=== PATIENT | female | born 1965 | race African-American/Black ===

== ENCOUNTER 2017-01-02 17:35 | Emergency (ER) | payer OTHER ==
[2017-01-02 18:11] VITALS: BP 136/89; PULSE 90; TEMP 98.4; BMI 28.7
--- NOTE | 2017-01-02 18:31 | PDOC ---
History of Present Illness - General Chief Complaint: Constipation Stated Complaint: CONSTIPATION Time Seen by Provider: 01/02/17 18:30 History Source: Patient Exam Limitations: No Limitations - History of Present Illness Initial Comments: 01/02/17 19:49 My chief complaint: No bowel movement for 5 days History of present illness: Patient is a 51-year-old female with a history of anemia here today complaining of having no bowel movement 5 days. Patient denies any nausea, vomiting or any abdominal pain or cramping. Patient reports that she took magnesium citrate yesterday without any results and also states took stool softener. Patient reports that she does not drink a lot of liquids normally. Patient denies having a history of having constipation. Patient denies being on any medication or any pain narcotics at this time. Timing/Duration: other (5 days no BM ) Severity: mild Associated Symptoms: reports: other (no BM for 5 days ) Past History - Past Medical History Allergies/Adverse Reactions: Allergies Allergy/AdvReac Type Severity Reaction Status Date / Time No Known Drug Allergies Allergy Verified 01/02/17 18:08 Home Medications: Ambulatory Orders Docusate Sodium [Colace -] 200 mg PO HS #30 capsule 01/02/17 Glycerin Suppository Adult - 1 each RC DAILY #15 supp.rect MDD 1 01/02/17 Polyethylene Glycol 3350 [Miralax (For Bowel Prep) -] 17 gm PO DAILY #1 bottle MDD 1 01/02/17 Anemia: Yes Asthma: No Cancer: No Cardiac Disorders: No CVA: No COPD: No CHF: No Dementia: No Diabetes: No GI Disorders: No Disorders: No HTN: No Hypercholesterolemia: No Liver Disease: No Seizures: No Thyroid Disease: No - Surgical History Abdominal Surgery: No Appendectomy: No Cardiac Surgery: No Cholecystectomy: No Lung Surgery: No Neurologic Surgery: No Orthopedic Surgery: No - Reproductive History Cervical CA: No Dysfunctional Uterine Bleeding: No Ectopic : No Endometrial CA: No Polycystic Ovaries: No Therapeutic (s) & number: No Tubal Ligation: No - Immunization History Immunization Up to Date: Yes - Psycho/Social/Smoking Cessation Hx Anxiety: No Suicidal Ideation: No Smoking History: Never smoked Have you smoked in the past 12 months: No Number of Cigarettes Smoked Daily: 0 Cigars Per Day: 0 Hx Alcohol Use: No Drug/Substance Use Hx: No Substance Use Type: None Hx Substance Use Treatment: No Review of Systems - Review of Systems Able to Perform ROS?: Yes Constitutional: No: Symptoms Reported HEENTM: No: Symptoms Reported Respiratory: No: Symptoms reported Cardiac (ROS): No: Symptoms Reported ABD/GI: Yes: Constipated (for 5 days no BM), Other (no BM for 5 days ). No: Diarrhea, Difficulty Swallowing, Nausea, Poor Appetite, Poor Fluid Intake, Rectal Bleeding, Vomiting, Indigestion, Abdominal cramping : No: Symptoms Reported Musculoskeletal: No: Symptoms Reported Integumentary: No: Symptoms Reported Neurological: No: Symptoms reported *Physical Exam - Vital Signs Last Vital Signs Temp Pulse Resp BP Pulse Ox 98.4 F 90 19 136/89 100 01/02/17 18:08 01/02/17 18:08 01/02/17 18:08 01/02/17 18:08 01/02/17 18:08 - Physical Exam General Appearance: Yes: Appropriately Dressed Respiratory/Chest: positive: Lungs Clear, Normal Breath Sounds. negative: Chest Tender, Respiratory Distress Cardiovascular: positive: Regular Rhythm, Regular Rate, S1, S2 Gastrointestinal/Abdominal: positive: Normal Bowel Sounds, Soft. negative: Tender, Organomegaly, Distended, Guarding, Rebound, Tenderness, Hepatomegaly, Spleenomegaly Rectal Exam: positive: normal rectal tone, other ( fecal firm matter felt in upper rectal vault). negative: hemorrhoids Integumentary: positive: Normal Color Neurologic: positive: Alert, Normal Response, Responsive Medical Decision Making - Medical Decision Making 01/02/17 19:50 Patient is a 51-year-old female with a history of anemia here today complaining of having no bowel movement 5 days. Patient denies any nausea, vomiting or any abdominal pain or cramping. Patient reports that she took magnesium citrate yesterday without any results and also states took stool softener. Patient reports that she does not drink a lot of liquids normally. Patient denies having a history of having constipation. Patient denies being on any medication or any pain narcotics at this time. Constipation PLAN: fleet enema miralax 17 gm in 8 oz of water daily Informed that she must increase her liquid intake to 8 glasses of water a day Patient must eat fruits and vegetables 8-10 servings a day Glycerin suppository adult insert into rectum every third day if no bowel movement Colace 200 mg daily had large bowel movement with formed brown stool feels better will sent home patient instructed that she could use a glycerin suppository tonight if she still feels an urge to Follow-up with PCP in a few days 01/02/17 20:00 01/02/17 20:14 01/03/17 11:54 01/03/17 11:55 *DC/Admit/Observation/Transfer Diagnosis at time of Disposition: Constipation Qualifiers: Constipation type: unspecified constipation type Qualified Code(s): K59.00 - Constipation, unspecified - Discharge Dispostion Disposition: HOME Condition at time of disposition: Stable - Prescriptions Prescriptions: Docusate Sodium [Colace -] 200 mg PO HS #30 capsule Glycerin Suppository Adult - 1 each RC DAILY #15 supp.rect MDD 1 Polyethylene Glycol 3350 [Miralax (For Bowel Prep) -] 17 gm PO DAILY #1 bottle MDD 1 - Referrals Referrals: Meena Olivera NP [Primary Care Provider] - - Patient Instructions Additional Instructions: You must increase your fluids daily drink at least 8 glasses of 8 ounces of water daily You must eat fresh fruits and vegetables daily up to 8 servings day Follow-up with your primary care provider within the next few days Return to emergency room if any abdominal pain or worsening symptoms or new symptoms develop Patient voiced understanding of discharge instructions and all questions were answered
[2017-01-02] MEDS ORDERED: SODIUM PHOSPHATE/NA BIPHOS 133 ML ENEMA PR ONE (19:49)
== END 2017-01-02 20:17 | disposition home or self-care (01) ==
LOC: JERFT 17:35
DX: K59.00 Constipation, unspecified (principal)
CPT/HCPCS: 99281-25

== ENCOUNTER 2017-01-06 17:53 | Emergency (ER) | payer OTHER ==
--- NOTE | 2017-01-06 18:05 | PDOC ---
Rapid Medical Evaluation Time Seen by Provider: 01/06/17 18:01 Medical Evaluation: Allergies Allergy/AdvReac Type Severity Reaction Status Date / Time No Known Drug Allergies Allergy Verified 01/02/17 18:08
[2017-01-06 18:15] VITALS: BP 115/88; PULSE 82; TEMP 98.1; BMI 28.0
[2017-01-06] MEDS ORDERED: LACTULOSE 20 GM/30 ML UDC (FOR ORAL USE ONLY) PO ONE (18:35)
[2017-01-06] MEDS ORDERED: LACTULOSE 20 GM/30 ML UDC (FOR ORAL USE ONLY) ONE (18:41)
--- NOTE | 2017-01-06 18:48 | PDOC ---
History of Present Illness - General Chief Complaint: Pain Stated Complaint: CONSTIPATED/ABD PAIN Time Seen by Provider: 01/06/17 18:01 History Source: Patient Exam Limitations: No Limitations - History of Present Illness Initial Comments: 01/06/17 21:53 Complaint: Constipation Patient is a 51 yo female who was seen here several days ago for constipation, done an enema and drank mag citrate prior to coming to the ER last time and was sent home and has been taking MiraLAX. Patient came back tonight because she still has an had a bowel movement. No abdominal pain although she feels pressure in her rectum when she has to go.. GENERAL/CONSTITUTIONAL: No fever, weakness. dizziness HEAD, EYES, EARS, NOSE AND THROAT: No change in vision. No ear pain or discharge. No sore throat. CARDIOVASCULAR: No chest pain RESPIRATORY: No shortness of breath or cough GASTROINTESTINAL: No pain, nausea, vomiting, diarrhea +constipation GENITOURINARY: No dysuria MUSCULOSKELETAL: No neck or back pain SKIN: No rash NEUROLOGIC: No headache, vertigo, loss of consciousness, or loss of sensation. GENERAL: The patient is awake, alert, and fully oriented, in no acute distress. HEAD: Normal with no signs of trauma. EYES: Pupils equal, round and reactive to light, sclera anicteric, conjunctiva clear. ENT: pharynx: no erythema, no exudate, uvula midline NECK: supple CHEST: clear, nontender, rr ABD: soft, nontender Rectal: No stool, no impaction EXTREMITIES: Normal range of motion, no edema. NEUROLOGICAL: Normal speech, normal gait. SKIN: Warm, Dry 01/06/17 22:03 Past History - Past Medical History Allergies/Adverse Reactions: Allergies Allergy/AdvReac Type Severity Reaction Status Date / Time No Known Drug Allergies Allergy Verified 01/06/17 18:14 Home Medications: Ambulatory Orders NK [No Known Home Medication] 01/06/17 Anemia: Yes Asthma: No Cancer: No Cardiac Disorders: No CVA: No COPD: No CHF: No Dementia: No Diabetes: No GI Disorders: No Disorders: No HTN: No Hypercholesterolemia: No Liver Disease: No Seizures: No Thyroid Disease: No - Surgical History Abdominal Surgery: No Appendectomy: No Cardiac Surgery: No Cholecystectomy: No Lung Surgery: No Neurologic Surgery: No Orthopedic Surgery: No - Reproductive History Cervical CA: No Dysfunctional Uterine Bleeding: No Ectopic : No Endometrial CA: No Polycystic Ovaries: No Therapeutic (s) & number: No Tubal Ligation: No - Immunization History Immunization Up to Date: Yes - Psycho/Social/Smoking Cessation Hx Anxiety: No Suicidal Ideation: No Smoking History: Never smoked Have you smoked in the past 12 months: No Number of Cigarettes Smoked Daily: 0 Cigars Per Day: 0 Information on smoking cessation initiated: No Hx Alcohol Use: No Drug/Substance Use Hx: No Substance Use Type: None Hx Substance Use Treatment: No *Physical Exam - Vital Signs Last Vital Signs Temp Pulse Resp BP Pulse Ox 98.1 F 82 18 115/88 100 01/06/17 18:11 01/06/17 18:11 01/06/17 18:11 01/06/17 18:11 01/06/17 18:11 ED Treatment Course - Medications Given in the ED: ED Medications Discontinued Medications Generic Name Dose Route Start Last Admin Trade Name Cbq PRN Reason Stop Dose Admin Lactulose 20 gm 01/06/17 18:35 01/06/17 18:41 Cephulac (Oral Use) PO 01/06/17 18:36 20 gm ONCE ONE Administration Medical Decision Making - Medical Decision Making 01/06/17 22:00 Patient with continuing constipation, Abdominal exam, rectal exam shows no impaction. No indication for emergent treatment, will give patient a dose of lactulose here, she will do another enema at home and drink plenty of fluids which she has not been doing. She will follow-up with her doctor and return if she gets sicker. 01/06/17 22:03 *DC/Admit/Observation/Transfer Diagnosis at time of Disposition: Constipation Qualifiers: Constipation type: unspecified constipation type Qualified Code(s): K59.00 - Constipation, unspecified - Referrals Referrals: Meena Olivera NP [Primary Care Provider] - - Patient Instructions Printed Discharge Instructions: DI for Constipation Additional Instructions: Make sure that you eating high-fiber foods, Do not eat rice, bread, meat. You can eat prunes, raisins, grapes, broccoli Get an enema and take it at home tonight in addition to lactulose return to the er if fever or getting sicker otherwise follow up with your doctor
== END 2017-01-06 18:54 | disposition home or self-care (01) ==
LOC: JER 17:53
DX: K59.00 Constipation, unspecified (principal)
CPT/HCPCS: 99282-25

== ENCOUNTER 2017-02-16 21:02 | Emergency (ER) | payer OTHER ==
[2017-02-16 21:06] VITALS: TEMP 98.4; BMI 28.5
--- NOTE | 2017-02-16 21:41 | PDOC ---
History of Present Illness - General History Source: Patient Exam Limitations: No Limitations - History of Present Illness Initial Comments: 02/16/17 22:20 Patient is a 51 year old female with a significant past medical history of anemia who presents to the ED with complaint of abdominal pain since 19:00 hour tonight. Patient states that the pain is sharp in nature and she has not taken anything to alleviate the pain. She states that the pain has progressively worsened. She denies fever, chills, nausea, vomiting, diarrhea or constipation. She denies dysuria, hematuria, urgency or hesitancy. PSH - partial hysterectomy <Tammy Shultz - Last Filed: 02/16/17 22:20> <Princess Gilliam - Last Filed: 02/17/17 06:37> - General Chief Complaint: Pain Stated Complaint: ABD PAIN Time Seen by Provider: 02/16/17 21:22 Past History <Tammy Shultz - Last Filed: 02/16/17 22:20> - Past Medical History Anemia: Yes Asthma: No Cancer: No Cardiac Disorders: No CVA: No COPD: No CHF: No Dementia: No Diabetes: No GI Disorders: No Disorders: No HTN: No Hypercholesterolemia: No Liver Disease: No Seizures: No Thyroid Disease: No - Surgical History Abdominal Surgery: No Appendectomy: No Cardiac Surgery: No Cholecystectomy: No Lung Surgery: No Neurologic Surgery: No Orthopedic Surgery: No - Reproductive History Cervical CA: No Dysfunctional Uterine Bleeding: No Ectopic : No Endometrial CA: No Polycystic Ovaries: No Therapeutic (s) & number: No Tubal Ligation: No - Immunization History Immunization Up to Date: Yes - Psycho/Social/Smoking Cessation Hx Anxiety: No Suicidal Ideation: No Smoking History: Never smoked Have you smoked in the past 12 months: No Number of Cigarettes Smoked Daily: 0 Cigars Per Day: 0 Hx Alcohol Use: No Drug/Substance Use Hx: No Substance Use Type: None Hx Substance Use Treatment: No <Princess Gilliam - Last Filed: 02/17/17 06:37> - Past Medical History Allergies/Adverse Reactions: Allergies Allergy/AdvReac Type Severity Reaction Status Date / Time No Known Drug Allergies Allergy Verified 02/16/17 21:05 Home Medications: Ambulatory Orders Cefuroxime Axetil [Ceftin -] 500 mg PO Q12H #14 tablet 02/17/17 Review of Systems - Review of Systems Able to Perform ROS?: Yes Comments:: 02/16/17 22:21 GENERAL/CONSTITUTIONAL: No fever or chills. No weakness. HEAD, EYES, EARS, NOSE AND THROAT: No change in vision. No ear pain or discharge. No sore throat. CARDIOVASCULAR: No chest pain or shortness of breath. RESPIRATORY: No cough, wheezing, or hemoptysis. GASTROINTESTINAL: +abdominal pain. No nausea, vomiting, diarrhea or constipation. GENITOURINARY: No dysuria, frequency, or change in urination. MUSCULOSKELETAL: No joint or muscle swelling or pain. No neck or back pain. SKIN: No rash NEUROLOGIC: No headache, vertigo, loss of consciousness, or change in strength/ sensation. ENDOCRINE: No increased thirst. No abnormal weight change. HEMATOLOGIC/LYMPHATIC: No anemia, easy bleeding, or history of blood clots. ALLERGIC/IMMUNOLOGIC: No hives or skin allergy. <Tammy Shultz - Last Filed: 02/16/17 22:20> *Physical Exam - Vital Signs Last Vital Signs Temp Pulse Resp BP Pulse Ox 98.4 F 87 20 168/55 99 02/16/17 21:05 02/16/17 21:05 02/16/17 21:05 02/16/17 21:05 02/16/17 21:05 - Physical Exam Comments: 02/16/17 22:21 GENERAL: Awake, alert, and fully oriented, +in moderate distress HEAD: No signs of trauma EYES: PERRLA, EOMI, sclera anicteric, conjunctiva clear ENT: Auricles normal inspection, hearing grossly normal, nares patent, oropharynx clear without exudates. Moist mucosa NECK: Normal ROM, supple, no lymphadenopathy, JVD, or masses LUNGS: Breath sounds equal, clear to auscultation bilaterally. No wheezes, and no crackles HEART: Regular rate and rhythm, normal S1 and S2, no murmurs, rubs or gallops ABDOMEN: Soft, nontender, normoactive bowel sounds. No guarding, no rebound. No masses EXTREMITIES: Normal range of motion, no edema. No clubbing or cyanosis. No cords, erythema, or tenderness NEUROLOGICAL: Cranial nerves II through XII grossly intact. Normal speech, normal gait SKIN: Warm, Dry, normal turgor, no rashes or lesions noted. <Tammy Shultz - Last Filed: 02/16/17 22:20> - Vital Signs Last Vital Signs Temp Pulse Resp BP Pulse Ox 98.4 F 87 20 168/55 99 02/16/17 21:05 02/16/17 21:05 02/16/17 21:05 02/16/17 21:05 02/16/17 21:05 <Princess Gilliam - Last Filed: 02/17/17 06:37> ED Treatment Course - Medications Given in the ED: ED Medications Discontinued Medications Generic Name Dose Route Start Last Admin Trade Name Khalif PRN Reason Stop Dose Admin Ketorolac Tromethamine 60 mg 02/16/17 21:43 02/16/17 22:02 Toradol Injection - IM 02/16/17 21:44 60 mg ONCE ONE Administration <Tammy Shultz - Last Filed: 02/16/17 22:20> - LABORATORY CBC & Chemistry Diagram: 02/16/17 22:30 02/16/17 22:30 <Princess Gilliam - Last Filed: 02/17/17 06:37> Medical Decision Making - Medical Decision Making 02/16/17 23:22 All her labs are normal; Pt is afebrile. I will send her for an FUA. 02/17/17 06:36 FUA (flat/upright abd XR ) normal Pt has nitrite positive urine. She will be treated with ceftin. Follow with PMD. Return if you are not getting better. Urine cultures were sent and can be followed in that event. <Princess Gilliam - Last Filed: 02/17/17 06:37> *DC/Admit/Observation/Transfer - Attestations Scribe Attestion: 02/16/17 22:22 Documentation prepared by FAB Alvarez, acting as expert medical writer for Princess Gilliam MD. <Tammy Shultz - Last Filed: 02/16/17 22:20> - Discharge Dispostion Admit: No <Princess Gilliam - Last Filed: 02/17/17 06:37> Diagnosis at time of Disposition: Urinary tract bacterial infections - Discharge Dispostion Disposition: HOME Condition at time of disposition: Stable - Prescriptions Prescriptions: Cefuroxime Axetil [Ceftin -] 500 mg PO Q12H #14 tablet - Referrals Referrals: Meena Olivera NP [Primary Care Provider] - - Patient Instructions Printed Discharge Instructions: DI for Urinary Tract Infection (UTI)
[2017-02-16] MEDS ORDERED: KETOROLAC TROMETHAMINE 60 MG/2 ML VIAL IM ONE (21:43)
[2017-02-16] MEDS ORDERED: KETOROLAC TROMETHAMINE 60 MG/2 ML VIAL ONE (21:55)
[2017-02-16] MEDS ORDERED: ONDANSETRON 4 MG/2 ML VIAL IVPB ONE (22:29)
[2017-02-16] MEDS ORDERED: FAMOTIDINE 20 MG/50 ML IVPB 50 ML IVPB ONE ×2 (22:29→22:42)
[2017-02-16] MEDS ORDERED: ONDANSETRON 4 MG/2 ML VIAL ONE (22:41)
[2017-02-16 22:45] LABS: BASOPHIL 0.9 % (0-2.0); EOSINOPHIL 0.5 % (0-4.5); MCHC 32.6 g/dl (32.0-36.0); MEAN CELL VOLUME 88.7 fl (80-96); MEAN PLT VOLUME 8.6 fl (7.5-11.1); NEUTROPHILS 80.7 % (42.8-82.8); PLATELET COUNT 311 K/MM3 (134-434); RDW 13.7 % (11.6-15.6)
[2017-02-16 23:11] LABS: ALBUMIN 3.9 g/dl (3.4-5.0); ANION GAP 11 (8-16); BILIRUBIN,TOTAL 0.4 mg/dL (0.2-1.0); CALCIUM 9.2 mg/dL (8.5-10.1); CO2 26 mmol/L (21-32); COCKROFT - GAULT 94.945; CREATININE 0.8 mg/dL (0.55-1.02); GLUCOSE,RANDOM 85 mg/dL (74-106); SGPT/ALT 20 U/L (12-78); TOT PROT 7.8 g/dl (6.4-8.2)
[2017-02-16 23:12] LABS: ALK PHOS 85 U/L (45-117)
[2017-02-16 23:13] LABS: SGOT/AST 24 U/L (15-37)
[2017-02-16] MEDS ORDERED: SODIUM CHLORIDE 0.9% 500 ML INFUS.BAG IV ONE (23:32)
[2017-02-17 00:29] LABS: URINE APPEARANCE CLEAR; URINE BILIRUBIN NEGATIVE (NEGATIVE); URINE COLOR YELLOW; URINE GLUCOSE (UA) NEGATIVE (NEGATIVE); URINE KETONE NEGATIVE (NEGATIVE); URINE LEUK ESTERASE NEGATIVE (NEGATIVE); URINE NITRITE POSITIVE (NEGATIVE); URINE PROTEIN NEGATIVE (NEGATIVE); URINE UROBILINOGEN 2.0 E.U/dl E.U./dl (0.2-1.0)
[2017-02-17 00:39] LABS: URINE BLOOD 1+ (NEGATIVE)
[2017-02-17 00:42] LABS: URINE BACTERIA RARE /hpf (NONE SEEN); URINE MUCUS RARE; URINE RBC 4 /hpf (0-3)
[2017-02-17] MEDS ORDERED: CEFUROXIME AXETIL 500 MG TABLET PO ONE (01:03)
[2017-02-17 01:52] VITALS: BP 114/73; PULSE 78
== END 2017-02-17 01:52 | disposition home or self-care (01) ==
LOC: JER 21:02
PROC: 3E0233Z Introduction of Anti-inflammatory into Muscle, Percutaneous Approach (ICD-10-PCS; principal; 2017-02-16)
PROC: 3E033GC Introduction of Other Therapeutic Substance into Peripheral Vein, Percutaneous Approach (ICD-10-PCS; 2017-02-16)
DX: N39.0 Urinary tract infection, site not specified (principal); B96.89 Other specified bacterial agents as the cause of diseases classified elsewhere
CPT/HCPCS: 36415; 74020-TC; 80053; 81003; 81015; 82150; 83690; 85025; 87086; 87186; 99283-25

== ENCOUNTER 2017-03-12 02:46 | Inpatient (IN) | payer OTHER ==
[2017-03-12 02:59] VITALS: BMI 27.6
--- NOTE | 2017-03-12 03:05 | PDOC ---
History of Present Illness - History of Present Illness Initial Comments: 03/12/17 03:09 The patient is a 51 year old female, with no significant past medical history, who presents to the emergency department s/p partial hysterectomy with constant abdominal pain since 1am this morning. She describes her pain as cramping and diffuse with slight prominence on the right. She reports her last full meal was at 7pm last night and states she ate again at midnight. She reports her last normal BM was yesterday. She denies chest pain, shortness of breath, headache and dizziness. She denies fever, chills, nausea, vomit, diarrhea and constipation. She denies dysuria, frequency, urgency and hematuria. Allergies: NKDA PCP - Dr. Meena Olivera ([phone]) <Heather Blackburn - Last Filed: 03/12/17 06:41> - General History Source: Patient <Max Dunham - Last Filed: 03/12/17 19:32> - General Chief Complaint: Pain, Acute Stated Complaint: ABD PAIN Time Seen by Provider: 03/12/17 03:03 Past History <Heather Blackburn - Last Filed: 03/12/17 06:41> - Past Medical History Anemia: Yes Asthma: No Cancer: No Cardiac Disorders: No CVA: No COPD: No CHF: No Dementia: No Diabetes: No GI Disorders: No Disorders: No HTN: No Hypercholesterolemia: No Liver Disease: No Seizures: No Thyroid Disease: No - Surgical History Abdominal Surgery: No Appendectomy: No Cardiac Surgery: No Cholecystectomy: No Lung Surgery: No Neurologic Surgery: No Orthopedic Surgery: No - Reproductive History Cervical CA: No Dysfunctional Uterine Bleeding: No Ectopic : No Endometrial CA: No Polycystic Ovaries: No Therapeutic (s) & number: No Tubal Ligation: No - Immunization History Immunization Up to Date: Yes - Psycho/Social/Smoking Cessation Hx Anxiety: No Suicidal Ideation: No Smoking History: Never smoked Have you smoked in the past 12 months: No Number of Cigarettes Smoked Daily: 0 Cigars Per Day: 0 Information on smoking cessation initiated: No Hx Alcohol Use: No Drug/Substance Use Hx: No Substance Use Type: None Hx Substance Use Treatment: No <Max Dunham - Last Filed: 03/12/17 19:32> - Past Medical History Allergies/Adverse Reactions: Allergies Allergy/AdvReac Type Severity Reaction Status Date / Time No Known Drug Allergies Allergy Verified 03/12/17 04:27 Home Medications: Ambulatory Orders NK [No Known Home Medication] 03/12/17 Review of Systems - Review of Systems Able to Perform ROS?: Yes Comments:: 03/12/17 03:10 CONSTITUTIONAL: Absent: fever, chills, diaphoresis, generalized weakness, malaise, loss of appetite HEENT: Absent: rhinorrhea, nasal congestion, throat pain, throat swelling, difficulty swallowing, mouth swelling, ear pain, eye pain, visual Changes CARDIOVASCULAR: Absent: chest pain, syncope, palpitations, irregular heart rate, lightheadedness , peripheral edema RESPIRATORY: Absent: cough, shortness of breath, dyspnea with exertion, orthopnea, wheezing, stridor, hemoptysis GASTROINTESTINAL: (+) abdominal pain, Absent: abdominal distension, nausea, vomiting, diarrhea, constipation, melena, hematochezia GENITOURINARY: Absent: dysuria, frequency, urgency, hesitancy, hematuria, flank pain, genital pain MUSCULOSKELETAL: Absent: myalgia, arthralgia, joint swelling SKIN: Absent: rash, itching, pallor HEMATOLOGIC/IMMUNOLOGIC: Absent: easy bleeding, easy bruising, lymphadenopathy, frequent infections ENDOCRINE: Absent: unexplained weight gain, unexplained weight loss, heat intolerance, cold intolerance NEUROLOGIC: Absent: headache, focal weakness or paresthesias, dizziness, unsteady gait, seizure, mental status changes, bladder or bowel incontinence PSYCHIATRIC: Absent: anxiety, depression, suicidal or homicidal ideation, hallucinations. <Heather Blackburn - Last Filed: 03/12/17 06:41> *Physical Exam - Vital Signs Last Vital Signs Temp Pulse Resp BP Pulse Ox 98.0 F 85 20 152/87 100 03/12/17 02:53 03/12/17 02:53 03/12/17 02:53 03/12/17 02:53 03/12/17 02:53 - Physical Exam Comments: 03/12/17 03:11 GENERAL: Well developed, well nourished. Awake and alert. No acute distress. HEENT: Normocephalic, atraumatic. PERRLA, EOMI. No conjunctival pallor. Sclera are non- icteric. Moist mucous membranes. Oropharynx is clear. NECK: Supple. Full ROM. No JVD. Carotid pulses 2+ and symmetric, without bruits. No thyromegaly. No lymphadenopathy. CARDIOVASCULAR: Regular rate and rhythm. No murmurs, rubs, or gallops. Distal pulses are 2+ and symmetric. PULMONARY: No evidence of respiratory distress. Lungs clear to auscultation bilaterally. No wheezing, rales or rhonchi. ABDOMINAL: (+) diffuse abdominal tenderness with mild RLQ ttp and rebounding. Soft. Non- distended. No guarding. No organomegaly. Normoactive bowel sounds. MUSCULOSKELETAL Normal range of motion at all joints. No bony deformities or tenderness. No CVA tenderness. EXTREMITIES: No cyanosis. No clubbing. No edema. No calf tenderness. SKIN: Warm and dry. Normal capillary refill. No rashes. No jaundice. NEUROLOGICAL: Alert, awake, appropriate. Cranial nerves 2-12 intact. Normoreflexic in the upper and lower extremities. Normal speech. Toes are down-going bilaterally. Gait is normal without ataxia. PSYCHIATRIC: Cooperative. Good eye contact. Appropriate mood and affect. <Heather Blackburn - Last Filed: 03/12/17 06:41> - Vital Signs Last Vital Signs Temp Pulse Resp BP Pulse Ox 98.0 F 85 20 152/87 100 03/12/17 02:53 03/12/17 02:53 03/12/17 02:53 03/12/17 02:53 03/12/17 02:53 <Max Dunham - Last Filed: 03/12/17 19:32> ED Treatment Course - LABORATORY CBC & Chemistry Diagram: 03/12/17 03:38 03/12/17 03:38 - RADIOLOGY Radiograph Interpretation: 03/12/17 06:41 Exam: Contrast-enhanced CT abdomen and pelvis was read by Clarence Man M.D. at 06:40 EST Images: [id number] Clinical indication: Nausea and vomiting. Findings: The lung bases are clear. The liver has a normal appearance. Cholelithiasis is noted. The gallbladder is distended up to 3 cm in diameter with slight mural thickening and hyperemia and trace pericholecystic infiltration. The spleen and pancreas have a normal appearance. The adrenal glands are unremarkable. The kidneys have a normal appearance and enhance symmetrically. There is no evidence of urinary tract obstruction. The gastrointestinal tract does not appear obstructed. No thickened or dilated bowel is seen. The appendix is not identified. No cecal thickening or pericecal inflammatory changes are seen. The patient is status post supracervical hysterectomy. A luteal cyst is noted in the right adnexa (image [id number]. A simple appearing cyst the left adnexa measures 17 mm in diameter. The urinary bladder is unremarkable. No abdominal or pelvic adenopathy is seen. No lytic or blastic destructive osseous lesions are seen. Impression: Cholelithiasis with a stone in the gallbladder neck. Mild mural thickening and hyperemia noted with hazy infiltration of the pericholecystic fat. Consider cholecystitis. <Heather Blackburn - Last Filed: 03/12/17 06:41> - LABORATORY CBC & Chemistry Diagram: 03/12/17 03:38 03/12/17 03:38 <Max Dunham - Last Filed: 03/12/17 19:32> Medical Decision Making - Medical Decision Making 03/12/17 19:32 Dr. Dunham: The scribe's documentation has been prepared under my direction and personally reviewed by me in its entirery. I confirm that the note above accurately reflects all work, treatment, procedures, and medical decision making performed by me. <Max Dunham - Last Filed: 03/12/17 19:32> *DC/Admit/Observation/Transfer - Attestations Scribe Attestion: 03/12/17 03:12 Documentation prepared by Heather Blackburn, acting as medical planner for Max Dunham DO <Heather Blackburn - Last Filed: 03/12/17 06:41> - Discharge Dispostion Admit: Yes <Max Dunham - Last Filed: 03/12/17 19:32> Diagnosis at time of Disposition: Biliary colic - Discharge Dispostion Condition at time of disposition: Stable - Referrals
[2017-03-12] MEDS ORDERED: SODIUM CHLORIDE 1,000 ML IV STA (03:06)
[2017-03-12] MEDS ORDERED: morphine CARPU-JECT 4 MG/1 ML DISP.SYRIN IVPUSH ONE ×2 (03:06→07:30)
[2017-03-12] MEDS ORDERED: ONDANSETRON 4 MG/2 ML VIAL IVPUSH STA (03:07)
[2017-03-12] MEDS ORDERED: morphine CARPU-JECT 2 MG/1 ML DISP.SYRIN IM ONE (03:43)
[2017-03-12] MEDS ORDERED: morphine CARPU-JECT 2 MG/1 ML DISP.SYRIN ONE (03:48)
[2017-03-12] MEDS ORDERED: morphine CARPU-JECT 4 MG/1 ML DISP.SYRIN ONE ×2 (03:49→04:21)
[2017-03-12 03:52] LABS: BASOPHIL 1.2 % (0-2.0); EOSINOPHIL 0.9 % (0-4.5); MCH 29.2 pg (25.7-33.7); MCHC 33.1 g/dl (32.0-36.0); MEAN CELL VOLUME 88.1 fl (80-96); MEAN PLT VOLUME 8.3 fl (7.5-11.1); NEUTROPHILS 75.3 % (42.8-82.8); PLATELET COUNT 306 K/MM3 (134-434); RDW 13.7 % (11.6-15.6)
[2017-03-12 04:10] LABS: INR 1.03 (0.82-1.09); PROTHROMBIN TIME (PATIENT) 11.3 SEC (9.98-11.88)
[2017-03-12] MEDS ORDERED: morphine CARPU-JECT 2 MG/1 ML DISP.SYRIN IVPUSH ONE ×2 (04:16→04:19)
[2017-03-12 04:20] LABS: ALBUMIN 3.9 g/dl (3.4-5.0); ALK PHOS 91 U/L (45-117); AMYLASE 59 U/L (25-115); ANION GAP 9 (8-16); BILIRUBIN,TOTAL 0.4 mg/dL (0.2-1.0); CALCIUM 9.5 mg/dL (8.5-10.1); CO2 26 mmol/L (21-32); CREATININE 0.9 mg/dL (0.55-1.02); GLUCOSE,RANDOM 104 mg/dL (74-106); SGOT/AST 21 U/L (15-37); SGPT/ALT 24 U/L (12-78); TOT PROT 7.7 g/dl (6.4-8.2)
[2017-03-12] MEDS ORDERED: ONDANSETRON 4 MG/2 ML VIAL ONE ×2 (04:23→09:11)
[2017-03-12 05:57] LABS: URINE APPEARANCE CLEAR; URINE BILIRUBIN NEGATIVE (NEGATIVE); URINE COLOR STRAW; URINE GLUCOSE (UA) NEGATIVE (NEGATIVE); URINE KETONE NEGATIVE (NEGATIVE); URINE LEUK ESTERASE NEGATIVE (NEGATIVE); URINE NITRITE NEGATIVE (NEGATIVE); URINE PROTEIN NEGATIVE (NEGATIVE); URINE UROBILINOGEN NEGATIVE E.U./dl (0.2-1.0)
[2017-03-12 06:03] LABS: URINE BLOOD 1+ (NEGATIVE)
[2017-03-12 06:09] LABS: URINE MUCUS RARE; URINE RBC 4 /hpf (0-3); URINE WBC 1 /hpf (3-5)
[2017-03-12] MEDS ORDERED: HYDROmorphone HCL CARPU-JECT 1 MG/1 ML DISP.SYRIN IVPUSH ONE (06:56)
[2017-03-12] MEDS ORDERED: ONDANSETRON 4 MG/2 ML VIAL IVPUSH ONE ×2 (07:57→10:59)
--- NOTE | 2017-03-12 07:59 | PDOC ---
*Physical Exam - Vital Signs Last Vital Signs Temp Pulse Resp BP Pulse Ox 97.3 F L 67 16 120/68 100 03/12/17 07:50 03/12/17 07:50 03/12/17 07:50 03/12/17 07:50 03/12/17 07:50 <Jacki Delong - Last Filed: 03/12/17 09:38> - Vital Signs Last Vital Signs Temp Pulse Resp BP Pulse Ox 97.3 F L 67 16 120/68 100 03/12/17 07:50 03/12/17 07:50 03/12/17 07:50 03/12/17 07:50 03/12/17 07:50 - Physical Exam Comments: 03/12/17 07:55 afebrile. Alert lying in stretcher. Abdomen is soft and nondistended, diffusely tender with guarding in the upper abdomen, greatest in the right upper quadrant <Gamal Bose - Last Filed: 03/12/17 09:48> ED Treatment Course - LABORATORY CBC & Chemistry Diagram: 03/12/17 03:38 03/12/17 03:38 - ADDITIONAL ORDERS Additional order review: Laboratory Results 03/12/17 03/12/17 03/12/17 03:38 03:38 03:38 INR Sodium 140 Potassium 3.5 Chloride 105 Carbon Dioxide 26 Anion Gap 9 BUN 18 D Creatinine 0.9 Creat Clearance w eGFR > 60 Random Glucose 104 D Calcium 9.5 Magnesium 2.0 Total Bilirubin 0.4 AST 21 ALT 24 Alkaline Phosphatase 91 Total Protein 7.7 Albumin 3.9 Total Amylase 59 Lipase 94 Serum , Qual Negative Urine Color Straw Urine Appearance Clear Urine pH 7.0 Ur Specific [place] 1.015 Urine Protein Negative Urine Glucose (UA) Negative Urine Ketones Negative Urine Blood 1+ H Urine Nitrite Negative Urine Bilirubin Negative Urine Urobilinogen Negative Ur Leukocyte Esterase Negative Urine RBC 4 Urine WBC 1 Ur Epithelial Cells Rare Urine Mucus Rare Blood Type O POSITIVE Antibody Screen Negative 03/12/17 03:38 INR 1.03 Sodium Potassium Chloride Carbon Dioxide Anion Gap BUN Creatinine Creat Clearance w eGFR Random Glucose Calcium Magnesium Total Bilirubin AST ALT Alkaline Phosphatase Total Protein Albumin Total Amylase Lipase Serum , Qual Urine Color Urine Appearance Urine pH Ur Specific [place] Urine Protein Urine Glucose (UA) Urine Ketones Urine Blood Urine Nitrite Urine Bilirubin Urine Urobilinogen Ur Leukocyte Esterase Urine RBC Urine WBC Ur Epithelial Cells Urine Mucus Blood Type Antibody Screen 03/12/17 03:38 RBC 4.19 MCV 88.1 MCHC 33.1 RDW 13.7 MPV 8.3 Neutrophils % 75.3 Lymphocytes % 16.0 D Monocytes % 6.6 Eosinophils % 0.9 Basophils % 1.2 - Medications Given in the ED: ED Medications Discontinued Medications Generic Name Dose Route Start Last Admin Trade Name Khalif PRN Reason Stop Dose Admin Hydromorphone HCl 0.5 mg 03/12/17 06:56 03/12/17 09:13 Dilaudid Injection - IVPUSH 03/12/17 06:57 0.5 mg ONCE ONE Administration Sodium Chloride 1,000 mls @ 1,000 mls/hr 03/12/17 03:06 03/12/17 04:26 Normal Saline - IV 03/12/17 04:05 1,000 mls/hr ASDIR STA Administration Morphine Sulfate 4 mg 03/12/17 03:06 03/12/17 03:45 Morphine Injection - IVPUSH 03/12/17 03:07 Not Given ONCE ONE Morphine Sulfate 6 mg 03/12/17 03:43 03/12/17 03:53 Morphine Injection - IM 03/12/17 03:44 6 mg ONCE ONE Administration Morphine Sulfate 4 mg 03/12/17 04:16 03/12/17 04:25 Morphine Injection - IVPUSH 03/12/17 04:17 4 mg ONCE ONE Administration Morphine Sulfate 6 mg 03/12/17 04:19 03/12/17 05:10 Morphine Injection - IVPUSH 03/12/17 04:20 Not Given ONCE ONE Morphine Sulfate 4 mg 03/12/17 07:30 03/12/17 09:33 Morphine Injection - IVPUSH 03/12/17 07:31 Not Given ONCE ONE Ondansetron HCl 4 mg 03/12/17 03:07 03/12/17 04:15 Zofran Injection IVPUSH 03/12/17 03:08 4 mg ONCE STA Administration Ondansetron HCl 4 mg 03/12/17 07:57 03/12/17 09:13 Zofran Injection IVPUSH 03/12/17 07:58 4 mg ONCE ONE Administration <Jacki Delong - Last Filed: 03/12/17 09:38> - LABORATORY CBC & Chemistry Diagram: 03/12/17 03:38 03/12/17 03:38 - ADDITIONAL ORDERS Additional order review: Laboratory Results 03/12/17 03/12/17 03/12/17 03:38 03:38 03:38 INR Sodium 140 Potassium 3.5 Chloride 105 Carbon Dioxide 26 Anion Gap 9 BUN 18 D Creatinine 0.9 Creat Clearance w eGFR > 60 Random Glucose 104 D Calcium 9.5 Magnesium 2.0 Total Bilirubin 0.4 AST 21 ALT 24 Alkaline Phosphatase 91 Total Protein 7.7 Albumin 3.9 Total Amylase 59 Lipase 94 Serum , Qual Negative Urine Color Straw Urine Appearance Clear Urine pH 7.0 Ur Specific [place] 1.015 Urine Protein Negative Urine Glucose (UA) Negative Urine Ketones Negative Urine Blood 1+ H Urine Nitrite Negative Urine Bilirubin Negative Urine Urobilinogen Negative Ur Leukocyte Esterase Negative Urine RBC 4 Urine WBC 1 Ur Epithelial Cells Rare Urine Mucus Rare Blood Type O POSITIVE Antibody Screen Negative 03/12/17 03:38 INR 1.03 Sodium Potassium Chloride Carbon Dioxide Anion Gap BUN Creatinine Creat Clearance w eGFR Random Glucose Calcium Magnesium Total Bilirubin AST ALT Alkaline Phosphatase Total Protein Albumin Total Amylase Lipase Serum , Qual Urine Color Urine Appearance Urine pH Ur Specific [place] Urine Protein Urine Glucose (UA) Urine Ketones Urine Blood Urine Nitrite Urine Bilirubin Urine Urobilinogen Ur Leukocyte Esterase Urine RBC Urine WBC Ur Epithelial Cells Urine Mucus Blood Type Antibody Screen 03/12/17 03:38 RBC 4.19 MCV 88.1 MCHC 33.1 RDW 13.7 MPV 8.3 Neutrophils % 75.3 Lymphocytes % 16.0 D Monocytes % 6.6 Eosinophils % 0.9 Basophils % 1.2 - Medications Given in the ED: ED Medications Discontinued Medications Generic Name Dose Route Start Last Admin Trade Name Freq PRN Reason Stop Dose Admin Sodium Chloride 1,000 mls @ 1,000 mls/hr 03/12/17 03:06 03/12/17 04:26 Normal Saline - IV 03/12/17 04:05 1,000 mls/hr ASDIR STA Administration Morphine Sulfate 4 mg 03/12/17 03:06 03/12/17 03:45 Morphine Injection - IVPUSH 03/12/17 03:07 Not Given ONCE ONE Morphine Sulfate 6 mg 03/12/17 03:43 03/12/17 03:53 Morphine Injection - IM 03/12/17 03:44 6 mg ONCE ONE Administration Morphine Sulfate 4 mg 03/12/17 04:16 03/12/17 04:25 Morphine Injection - IVPUSH 03/12/17 04:17 4 mg ONCE ONE Administration Morphine Sulfate 6 mg 03/12/17 04:19 03/12/17 05:10 Morphine Injection - IVPUSH 03/12/17 04:20 Not Given ONCE ONE Ondansetron HCl 4 mg 03/12/17 03:07 03/12/17 04:15 Zofran Injection IVPUSH 03/12/17 03:08 4 mg ONCE STA Administration <Gamal Bose - Last Filed: 03/12/17 09:48> Medical Decision Making - Medical Decision Making 03/12/17 09:38 [employer] Hospitalist. <Jacki Delong - Last Filed: 03/12/17 09:38> - Medical Decision Making 03/12/17 07:57 Received signout on this 51-year-old female with no significant past medical history who has had intermittent epigastric/right upper quadrant pain for 2 weeks, now with persistent pain since 12:30 AM. Labs are within normal limits including white count and LFTs, CT showed gallbladder neck stone with question of early fluid. Plan at signout was to follow-up ultrasound and dispo accordingly. Patient still has peritoneal findings on exam, suspect that this is intractable biliary colic and possible early cholecystitis. We'll give additional pain medications, follow-up ultrasound, likely admission. 03/12/17 09:36 Ultrasound shows multiple gallstones with no definitive evidence of cholecystitis but with borderline dilated CBD. Patient still in pain and tender , will admit for intractable biliary colic and surgical evaluation. 03/12/17 09:47 Accepted for inpatient med/surg by Dr. Roca, signout given to [employer] Dorcas. Abx ordered, will consult gen surg. <Gamal Bose - Last Filed: 03/12/17 09:48> *DC/Admit/Observation/Transfer <Jacki Delong - Last Filed: 03/12/17 09:38> - Discharge Dispostion Admit: Yes <Gamal Bose - Last Filed: 03/12/17 09:48> Diagnosis at time of Disposition: Biliary colic - Discharge Dispostion Condition at time of disposition: Fair - Referrals Referrals: Meena Olivera NP [Primary Care Provider] - - Patient Instructions - Post Discharge Activity
[2017-03-12] MEDS ORDERED: HYDROmorphone HCL CARPU-JECT 1 MG/1 ML DISP.SYRIN ONE (09:11)
[2017-03-12] MEDS ORDERED: PIPERACILLIN/TAZOB 4.5 GM/100 ML PRE-DOCKED IVPB ONE (09:37)
--- NOTE | 2017-03-12 09:45 | HP ---
CHIEF COMPLAINT: Abdominal PCP: Meena Olivera NP HISTORY OF PRESENT ILLNESS: This is an otherwise healthy 51 year old female who presents for evaluation of RUQ pain that started at 1230am today. She has had similar pain off and on for the past 3 weeks, but was told she had a UTI. She also followed up with a GI when pain did not resolve, but was told she was in good health. She describes the pain today as "squeezing", severe, and associated with nausea and chills. She continues to have pain despite multiple doses of Dilaudid. She is actively vomiting. ER course was notable for: (1) WBC within normal limits at 9.0 (2) Gallbladder u/s: multiple non-mobile gallstones with wall thickening Recent Travel: None PAST MEDICAL HISTORY: None PAST SURGICAL HISTORY: Partial hysterectomy 2014, ganglion cyst of left wrist 2016 Social History: Lives with daughters, works in [employer] services at [employer] Smoking: None Alcohol: Occasional Drugs: None Family History: Mother with breast cancer at age 51 Allergies No Known Drug Allergies Allergy (Verified 03/12/17 04:27) HOME MEDICATIONS: Home Medications Medication Instructions Recorded NK [No Known Home Medication] 03/12/17 REVIEW OF SYSTEMS CONSTITUTIONAL: Chills Absent: fever, diaphoresis, generalized weakness, malaise, loss of appetite, weight change HEENT: Absent: rhinorrhea, nasal congestion, throat pain, throat swelling, difficulty swallowing, mouth swelling, ear pain, eye pain, visual changes CARDIOVASCULAR: Absent: chest pain, syncope, palpitations, irregular heart rate, lightheadedness , peripheral edema RESPIRATORY: Absent: cough, shortness of breath, dyspnea with exertion, orthopnea, wheezing, stridor, hemoptysis GASTROINTESTINAL: See HPI GENITOURINARY: Absent: dysuria, frequency, urgency, hesitancy, hematuria, flank pain, genital pain MUSCULOSKELETAL: Absent: myalgia, arthralgia, joint swelling, back pain, neck pain SKIN: Absent: rash, itching, pallor HEMATOLOGIC/IMMUNOLOGIC: Absent: easy bleeding, easy bruising, lymphadenopathy, frequent infections ENDOCRINE: Absent: unexplained weight gain, unexplained weight loss, heat intolerance, cold intolerance NEUROLOGIC: Absent: headache, focal weakness or paresthesias, dizziness, unsteady gait, seizure, mental status changes, bladder or bowel incontinence PSYCHIATRIC: Absent: anxiety, depression, suicidal or homicidal ideation, hallucinations. PHYSICAL EXAMINATION Vital Signs - 24 hr 03/12/17 03/12/17 03/12/17 02:53 02:57 07:09 Temperature 98.0 F 97.2 F L Pulse Rate 85 Pulse Rate [ 63 Left] Respiratory 20 17 Rate Blood Pressure 152/87 Blood Pressure 107/70 [Left Arm] O2 Sat by Pulse 100 100 99 Oximetry (%) 03/12/17 07:50 Temperature 97.3 F L Pulse Rate Pulse Rate [ 67 Left] Respiratory 16 Rate Blood Pressure Blood Pressure 120/68 [Left Arm] O2 Sat by Pulse 100 Oximetry (%) GENERAL: Awake, alert, and fully oriented, in no acute distress. HEAD: Normal with no signs of trauma. EYES: Pupils equal, round and reactive to light, extraocular movements intact, sclera anicteric, conjunctiva clear. No lid lag. EARS, NOSE, THROAT: Ears normal, nares patent, oropharynx clear without exudates. Moist mucous membranes. NECK: Normal range of motion, supple without lymphadenopathy, JVD, or masses. LUNGS: Breath sounds equal, clear to auscultation bilaterally. No wheezes, and no crackles. No accessory muscle use. HEART: Regular rate and rhythm, normal S1 and S2 without murmur, rub or gallop. ABDOMEN: +Colon's sign, exquisitely tender in RUQ and epigastrium with guarding. No other focal abdominal tenderness. MUSCULOSKELETAL: Normal range of motion at all joints. No bony deformities or tenderness. No CVA tenderness. UPPER EXTREMITIES: 2+ pulses, warm, well-perfused. No cyanosis. No clubbing. No peripheral edema. LOWER EXTREMITIES: 2+ pulses, warm, well-perfused. No calf tenderness. No peripheral edema. NEUROLOGICAL: Cranial nerves II-XII intact. Normal speech. Normal gait. PSYCHIATRIC: Cooperative. Good eye contact. Appropriate mood and affect. SKIN: Warm, dry, normal turgor, no rashes or lesions noted, normal capillary refill. Laboratory Results - last 24 hr 03/12/17 03/12/17 03/12/17 03:38 03:38 03:38 WBC 9.0 RBC 4.19 Hgb 12.2 Hct 36.9 MCV 88.1 MCHC 33.1 RDW 13.7 Plt Count 306 MPV 8.3 Neutrophils % 75.3 Lymphocytes % 16.0 D Monocytes % 6.6 Eosinophils % 0.9 Basophils % 1.2 INR 1.03 Sodium Potassium Chloride Carbon Dioxide Anion Gap BUN Creatinine Creat Clearance w eGFR Random Glucose Calcium Magnesium Total Bilirubin AST ALT Alkaline Phosphatase Total Protein Albumin Total Amylase Lipase Serum , Qual Negative Urine Color Straw Urine Appearance Clear Urine pH 7.0 Ur Specific [place] 1.015 Urine Protein Negative Urine Glucose (UA) Negative Urine Ketones Negative Urine Blood 1+ H Urine Nitrite Negative Urine Bilirubin Negative Urine Urobilinogen Negative Ur Leukocyte Esterase Negative Urine RBC 4 Urine WBC 1 Ur Epithelial Cells Rare Urine Mucus Rare Blood Type Antibody Screen 03/12/17 03/12/17 03:38 03:38 WBC RBC Hgb Hct MCV MCHC RDW Plt Count MPV Neutrophils % Lymphocytes % Monocytes % Eosinophils % Basophils % INR Sodium 140 Potassium 3.5 Chloride 105 Carbon Dioxide 26 Anion Gap 9 BUN 18 D Creatinine 0.9 Creat Clearance w eGFR > 60 Random Glucose 104 D Calcium 9.5 Magnesium 2.0 Total Bilirubin 0.4 AST 21 ALT 24 Alkaline Phosphatase 91 Total Protein 7.7 Albumin 3.9 Total Amylase 59 Lipase 94 Serum , Qual Urine Color Urine Appearance Urine pH Ur Specific [place] Urine Protein Urine Glucose (UA) Urine Ketones Urine Blood Urine Nitrite Urine Bilirubin Urine Urobilinogen Ur Leukocyte Esterase Urine RBC Urine WBC Ur Epithelial Cells Urine Mucus Blood Type O POSITIVE Antibody Screen Negative ASSESSMENT/PLAN: 51 year old female with biliary colic vs cholecystitis. Problem List - Problem (1) Biliary colic Assessment/Plan: -NPO -Hydromorphone 1mg IVPB q4h prn pain and Zofran 4mg IVP prn nausea -Surgical consultation -Follow CBC, lipase, LFTs, temperature curve -Given one dose Zosyn in ED Code(s): K80.50 - CALCULUS OF BILE DUCT W/O CHOLANGITIS OR CHOLECYST W/O OBST (2) DVT prophylaxis Code(s): UYP8716 - Visit type - Emergency Visit Emergency Visit: Yes ED Registration Date: 03/12/17 Care time: The patient presented to the Emergency Department on the above date and was hospitalized for further evaluation of their emergent condition. - New Patient This patient is new to me today: Yes Date on this admission: 03/12/17 - Critical Care Critical Care patient: No
[2017-03-12] MEDS ORDERED: ONDANSETRON 4 MG/2 ML VIAL IVPB PRN (09:47)
[2017-03-12] MEDS ORDERED: HYDROmorphone HCL CARPU-JECT 1 MG/1 ML DISP.SYRIN IVPB PRN (09:47)
[2017-03-12] MEDS ORDERED: ACETAMINOPHEN 325 MG TABLET (FP) PO PRN (09:47)
[2017-03-12] MEDS ORDERED: SODIUM CHLORIDE 1,000 ML IV SCH (10:00)
--- NOTE | 2017-03-12 11:19 | CONSULT ---
- Consultation REQUESTED PROVIDER: Dr. Bello CONSULT REQUEST: We have been asked to surgically evaluate this patient for biliary colic. PCP:Charissa Roca HISTORY OF PRESENT ILLNESS: 51 yo F presents to [facility] ED complaining of abdominal pain. Patient states the pain is located in the center of her abdomen and right side. She has been experiencing this pain for several weeks. She was seen in the ED 3 weeks ago with this pain and treated for a UTI. The pain has come and gone since then, but returned that night and increased in severity (08/19). Patient states her pain is currently a 6-7 after receiving pain medication. She describes it as a stabbing pain. It is not associated with food intake. She has had two episodes of vomiting today and still has some nausea. Her last meal was last night around 7PM, pasta and chicken. She admits having chills, but denies fever, constipation, diarrhea. PMHx: Denies PSHx: Partial hysterectomy 2014, ganglion cyst excision left wrist 2016 Social Hx: Denies tobacco use, occasional alcohol use (social) Home Medications Medication Instructions Recorded NK [No Known Home Medication] 03/12/17 Allergies Allergy/AdvReac Type Severity Reaction Status Date / Time No Known Drug Allergies Allergy Verified 03/12/17 04:27 REVIEW OF SYSTEMS: CONSTITUTIONAL: Present: chills Absent: fever, diaphoresis, generalized weakness CARDIOVASCULAR: Absent: chest pain, palpitations, lightheadedness RESPIRATORY: Absent: cough, shortness of breath GASTROINTESTINAL: Present: abdominal pain, nausea, vomiting Absent: diarrhea, constipation GENITOURINARY: Absent: dysuria, frequency, urgency, hesitancy, hematuria MUSCULOSKELETAL: Absent: myalgia, arthralgia SKIN: Absent: rash, itching HEMATOLOGIC/IMMUNOLOGIC: Absent: easy bleeding, easy bruising NEUROLOGIC: Absent: headache, dizziness PHYSICAL EXAM: GENERAL: Awake, alert, and fully oriented, in no acute distress. HEAD: Normal with no signs of trauma. EYES: PERRL, sclera anicteric, conjunctiva clear. NECK: Normal ROM LUNGS: Clear to auscultation bilat anteriorly. No wheezes, and no crackles. No accessory muscle use. HEART: Regular rate and rhythm. No murmurs ABDOMEN: Soft, not distended, tenderness in central abdomen and RUQ w/ guarding , + Colon's sign, no rebound, no masses MUSCULOSKELETAL: Normal ROM at all joints UPPER EXTREMITIES: 2+ pulses, warm, well-perfused LOWER EXTREMITIES: 2+ pulses, warm, well-perfused NEUROLOGICAL: Normal speech, gait not observed. PSYCH: Cooperative. Good eye contact. Appropriate mood and affect. SKIN: Warm, dry Vital Signs Temperature 97.3 F L 03/12/17 07:50 Pulse Rate 67 03/12/17 07:50 Respiratory Rate 16 03/12/17 07:50 Blood Pressure 120/68 03/12/17 07:50 O2 Sat by Pulse Oximetry (%) 100 03/12/17 07:50 Lab Results WBC 9.0 K/mm3 (4.0-10.0) 03/12/17 03:38 RBC 4.19 M/mm3 (3.60-5.2) 03/12/17 03:38 Hgb 12.2 GM/dL (10.7-15.3) 03/12/17 03:38 Hct 36.9 % (32.4-45.2) 03/12/17 03:38 MCV 88.1 fl (80-96) 03/12/17 03:38 MCHC 33.1 g/dl (32.0-36.0) 03/12/17 03:38 RDW 13.7 % (11.6-15.6) 03/12/17 03:38 Plt Count 306 K/MM3 (134-434) 03/12/17 03:38 Sodium 140 mmol/L (136-145) 03/12/17 03:38 Potassium 3.5 mmol/L (3.5-5.1) 03/12/17 03:38 Chloride 105 mmol/L (98-107) 03/12/17 03:38 Carbon Dioxide 26 mmol/L (21-32) 03/12/17 03:38 Anion Gap 9 (8-16) 03/12/17 03:38 BUN 18 mg/dL (7-18) D 03/12/17 03:38 Creatinine 0.9 mg/dL (0.55-1.02) 03/12/17 03:38 Random Glucose 104 mg/dL (74-106) D 03/12/17 03:38 Calcium 9.5 mg/dL (8.5-10.1) 03/12/17 03:38 Blood Type O POSITIVE 03/12/17 03:38 Antibody Screen Negative 03/12/17 03:38 INR 1.03 (0.82-1.09) 03/12/17 03:38 Hepatic Panel Total Bilirubin 0.4 mg/dL (0.2-1.0) 03/12/17 03:38 AST 21 U/L (15-37) 03/12/17 03:38 ALT 24 U/L (12-78) 03/12/17 03:38 Alkaline Phosphatase 91 U/L (45-117) 03/12/17 03:38 Albumin 3.9 g/dl (3.4-5.0) 03/12/17 03:38 Lipase: 94 US Gallbladder: multiple nonmobile gallstones with wall thickening and without evidence of pericholecystic free fluid. CBD measuring 6mm. Problem List - Problems (1) Biliary colic Code(s): K80.50 - CALCULUS OF BILE DUCT W/O CHOLANGITIS OR CHOLECYST W/O OBST (2) Cholelithiasis Code(s): K80.20 - CALCULUS OF GALLBLADDER W/O CHOLECYSTITIS W/O OBSTRUCTION Qualifiers: Cholelithiasis location: gallbladder Biliary obstruction: without biliary obstruction (3) Cholecystitis Assessment/Plan: Patient discussed with Dr. Bello Plan for laparoscopic cholecystectomy, possible open, tomorrow 03/13/[address] Bello NPO, IVF Pain control, antiemetics Continue abx, ZOysn given in ED DVT prophylaxis Code(s): K81.9 - CHOLECYSTITIS, UNSPECIFIED Visit type - Case Type Case Type: ED Admission - Emergency Emergency Visit: Yes ED Registration Date: 03/12/17 Care time: The patient presented to the Emergency Department on the above date and was hospitalized for further evaluation of their emergent condition. - New patient This patient is new to me today: No - Critical Care Critical Care patient: No
--- NOTE | 2017-03-12 14:33 | PN ---
Progress Note (short form) - Note Progress Note: Attending Surgeon Patient seen and evaluated; chart reviewed; patient admitted w/ intractable RUQ pain; w/u reveals cholelithiasis/acute cholecystitis; paln for lap sosa possible open 03/13/17;r/b/t/alternatives d/w the patient who will consent to and requests said procedure. Benjamin Bello MD FACS
[2017-03-12] MEDS ORDERED: LACTATED RINGERS SOLUTION 1,000 ML IV SCH ×2 (14:45)
[2017-03-13 07:37] LABS: BASOPHIL 1.4 % (0-2.0); EOSINOPHIL 1.4 % (0-4.5); MCH 29.4 pg (25.7-33.7); MCHC 33.6 g/dl (32.0-36.0); MEAN CELL VOLUME 87.7 fl (80-96); MEAN PLT VOLUME 8.1 fl (7.5-11.1); NEUTROPHILS 60.3 % (42.8-82.8); PLATELET COUNT 282 K/MM3 (134-434); RDW 13.5 % (11.6-15.6); WHITE BLOOD COUNT 6.5 K/mm3 (4.0-10.0)
[2017-03-13 07:54] LABS: INR 1.12 (0.82-1.09); PROTHROMBIN TIME (PATIENT) 12.3 SEC (9.98-11.88)
[2017-03-13 08:16] LABS: ALBUMIN 3.5 g/dl (3.4-5.0); ALK PHOS 81 U/L (45-117); ANION GAP 7 (8-16); BILIRUBIN,TOTAL 0.7 mg/dL (0.2-1.0); CALCIUM 8.7 mg/dL (8.5-10.1); CO2 25 mmol/L (21-32); CREATININE 0.8 mg/dL (0.55-1.02); GLUCOSE,RANDOM 79 mg/dL (74-106); SGOT/AST 17 U/L (15-37); SGPT/ALT 19 U/L (12-78); TOT PROT 7.1 g/dl (6.4-8.2)
[2017-03-13] MEDS ORDERED: BUPIVACAINE HCL/PF 0.5% (5MG/ML) 10 ML VIAL ONE (09:57)
[2017-03-13] MEDS ORDERED: MIDAZOLAM HCL 2 MG/2 ML SINGLE DOSE VIAL ONE (10:04)
[2017-03-13] MEDS ORDERED: ROCURONIUM BROMIDE 50 MG/5 ML VIAL ONE (10:24)
[2017-03-13] MEDS ORDERED: PROPOFOL 20 ML ONE (10:24)
[2017-03-13] MEDS ORDERED: ceFAZolin SODIUM 1 GM VIAL IVPB ONE (10:30)
[2017-03-13] MEDS ORDERED: ceFAZolin SODIUM 1 GM VIAL ONE (10:34)
[2017-03-13] MEDS ORDERED: DEXAMETHASONE SOD PHOSPHATE 4 MG/1 ML VIAL ONE (10:45)
[2017-03-13] MEDS ORDERED: BUPIVACAINE HCL/PF 0.5% (5MG/ML) 10 ML VIAL IJ ONE ×2 (10:46→11:50)
[2017-03-13] MEDS ORDERED: NEOSTIGMINE METHYLSULFATE 0.5 MG/ML - 10 ML MDV ONE (11:47)
[2017-03-13] MEDS ORDERED: GLYCOPYRROLATE 0.2 MG/1 ML VIAL ONE (11:47)
[2017-03-13] MEDS ORDERED: KETOROLAC TROMETHAMINE 30 MG/1 ML VIAL ONE (11:49)
--- NOTE | 2017-03-13 12:00 | OP ---
Operative Note - Note: Operative Date: 03/13/17 Pre-Operative Diagnosis: biliary colic/cholelithiasis Operation: laparoscopic cholecystectomy Findings: chronic cholecystitis/cholelithiasis Post-Operative Diagnosis: Same as Pre-op Surgeon: Benjamin Bello Under Ground Miner: Lindsey Arroyo Anesthesia: General Estimated Blood Loss (mls): 20 Drains & Tubes with Location: none
[2017-03-13] MEDS ORDERED: ONDANSETRON 4 MG/2 ML VIAL IVPUSH PRN (12:09)
[2017-03-13] MEDS ORDERED: PROMETHAZINE HCL 25 MG/1 ML VIAL IVPUSH PRN (12:09)
[2017-03-13] MEDS ORDERED: oxyCODONE HCL 5 MG TABLET PO PRN (12:22)
--- NOTE | 2017-03-13 12:25 | SURG ---
Surgery Chief Development Officer Note Chief Development Officer: Lindsey Arroyo PA-C Date of Service: 03/13/17 Diagnosis: biliary colic/cholelithiasis Procedure: laparoscopic cholecystectomy I was present for the entirety of the operative procedure. For further detail, please refer to operative report. Visit type - Case Type Case Type: ED Admission
[2017-03-13] MEDS ORDERED: HYDROmorphone HCL CARPU-JECT 1 MG/1 ML DISP.SYRIN IVPB PRN (12:38)
[2017-03-13] MEDS ORDERED: ACETAMINOPHEN 325 MG TABLET (FP) PO PRN (12:38)
[2017-03-13] MEDS ORDERED: ONDANSETRON 4 MG/2 ML VIAL IVPB PRN (12:38)
[2017-03-13] MEDS ORDERED: LACTATED RINGERS SOLUTION 1,000 ML IV SCH (13:00)
--- NOTE | 2017-03-13 15:16 | PN ---
Physical Exam: SUBJECTIVE: Patient seen and examined. Patient denies pain, shortness of breath or abdominal pain. OBJECTIVE: s/p laparoscopic cholecystectomy today Vital Signs Period Temp Pulse Resp BP Sys/Mckeon Pulse Ox Last 24 Hr 98 F-98.7 F 57-74 13-20 102-117/55-72 96-100 GENERAL: The patient is awake, alert, and fully oriented, in no acute distress. HEAD: Normal with no signs of trauma. EYES: PERRL, extraocular movements intact, sclera anicteric, conjunctiva clear. No ptosis. ENT: Ears normal, nares patent, oropharynx clear without exudates, moist mucous membranes. NECK: Trachea midline, full range of motion, supple. LUNGS: anterior Breath sounds clear HEART: Regular rate and rhythm ABDOMEN: s/p lap sosa, dressing c/d/i EXTREMITIES: 2+ pulses, warm, well-perfused, no edema. NEUROLOGICAL: Normal speech, gait not observed. PSYCH: Normal mood, normal affect. Laboratory Results - last 24 hr 03/13/17 03/13/17 03/13/17 06:00 06:40 06:40 WBC 6.5 RBC 4.30 Hgb 12.7 Hct 37.7 MCV 87.7 MCHC 33.6 RDW 13.5 Plt Count 282 MPV 8.1 Neutrophils % 60.3 Lymphocytes % 28.6 D Monocytes % 8.3 Eosinophils % 1.4 Basophils % 1.4 INR 1.12 Sodium 140 Potassium 3.8 Chloride 108 H Carbon Dioxide 25 Anion Gap 7 L BUN 9 D Creatinine 0.8 Creat Clearance w eGFR > 60 Random Glucose 79 D Calcium 8.7 Total Bilirubin 0.7 D AST 17 ALT 19 D Alkaline Phosphatase 81 Total Protein 7.1 Albumin 3.5 Lipase 68 L Blood Type Antibody Screen 03/13/17 06:40 WBC RBC Hgb Hct MCV MCHC RDW Plt Count MPV Neutrophils % Lymphocytes % Monocytes % Eosinophils % Basophils % INR Sodium Potassium Chloride Carbon Dioxide Anion Gap BUN Creatinine Creat Clearance w eGFR Random Glucose Calcium Total Bilirubin AST ALT Alkaline Phosphatase Total Protein Albumin Lipase Blood Type O POSITIVE Antibody Screen Negative Active Medications Generic Name Dose Route Start Last Admin Trade Name Freq PRN Reason Stop Dose Admin Acetaminophen 650 mg 03/13/17 12:38 Tylenol - PO Q4H PRN FEVER OR PAIN Hydromorphone HCl 1 mg 03/13/17 12:38 Dilaudid Injection - IVPB Q4H PRN PAIN Lactated Ringer's 1,000 mls @ 100 mls/hr 03/13/17 13:00 03/13/17 13:45 Lactated Ringers Solution IV 0 mls ASDIR KAREN Administration Ondansetron HCl 4 mg 03/13/17 12:38 Zofran Injection IVPB Q6H PRN NAUSEA Oxycodone HCl 5 mg 03/13/17 12:22 Roxicodone - PO Q4H PRN PAIN ASSESSMENT/PLAN: Patient is a 51 year old female with no significant past medical history who presents to the emergency department on 03/12/2017 s/p partial hysterectomy with constant abdominal pain and vomiting. On admission she denied chest pain, shortness of breath, headache and dizziness. She is s/p lap. sosa today. She denies fever, chills, nausea, vomit, diarrhea and constipation. GI: Biliary colic/cholelithiasis - acute Assessment/Plan: s/p laparoscopic cholecystectomy today On LR @ 100cc/hr Dilaudid/Oxycodone for pain Zofran for nausea Monitor post surgery Follow CBC, lipase, LFTs, vitals, temp Advance diet as per surgery F.E.N. Fluids: LR @ 100cc/hr Electrolytes: monitor Bmp Nutrition: clears, advance per surgery Prophylaxis: GI: Protonix PO DVT: SCDs Disposition: Requires inpatient hospitalization. Full Code. Visit type - Emergency Visit Emergency Visit: Yes ED Registration Date: 03/12/17 Care time: The patient presented to the Emergency Department on the above date and was hospitalized for further evaluation of their emergent condition. - New Patient This patient is new to me today: Yes Date on this admission: 03/14/17 - Critical Care Critical Care patient: No - Discharge Referral Referred to [facility] Med P.C.: No
--- NOTE | 2017-03-14 08:25 | PN ---
Progress Note (short form) - Note Progress Note: POD #1 Alert. Doing well. C/o incisional tenderness. Pain managed well with PRN meds. She is oob and ambulating hallways unassisted. Voiding spontaneously. Passing flatus. Tolerating PO diet. Denies n/v/f/c, CP or SOB. AVDD. Afebrile. Gen: alert. nad. ABD: all surgical ports intact. No hematoma. Problem List - Problems (1) Cholecystitis Assessment/Plan: POD #1 s/p lap sosa Regular diet. Can be discharged home today. follow-up with Dr. Bello next Friday On behalf of Dr. Bello, thank you for the opportunity to participate in your patient's care Code(s): K81.9 - CHOLECYSTITIS, UNSPECIFIED
[2017-03-14 09:03] LABS: BASOPHIL 0.1 % (0-2.0); EOSINOPHIL 0.1 % (0-4.5); MCH 28.4 pg (25.7-33.7); MCHC 32.5 g/dl (32.0-36.0); MEAN CELL VOLUME 87.3 fl (80-96); MEAN PLT VOLUME 8.6 fl (7.5-11.1); NEUTROPHILS 84.9 % (42.8-82.8); PLATELET COUNT 259 K/MM3 (134-434); RDW 13.8 % (11.6-15.6); WHITE BLOOD COUNT 18.3 K/mm3 (4.0-10.0)
[2017-03-14 09:31] VITALS: BP 106/70; PULSE 64; TEMP 98.7
[2017-03-14 09:34] LABS: ALBUMIN 2.9 g/dl (3.4-5.0); ANION GAP 10 (8-16); CALCIUM 8.8 mg/dL (8.5-10.1); CO2 24 mmol/L (21-32); GLUCOSE,RANDOM 93 mg/dL (74-106)
[2017-03-14 09:40] LABS: ALK PHOS 68 U/L (45-117); BILIRUBIN,TOTAL 0.6 mg/dL (0.2-1.0); CREATININE 0.8 mg/dL (0.55-1.02); SGOT/AST 29 U/L (15-37); SGPT/ALT 28 U/L (12-78); TOT PROT 5.9 g/dl (6.4-8.2)
--- NOTE | 2017-03-14 09:51 | DS ---
Physical Exam: SUBJECTIVE: Patient seen and examined. States she feels well, denies chest pain , abdominal pain. Has some intermittent abdominal tenderness. Encouraged her to ambulate, use spirometer (which will be given to her prior to d/c) OBJECTIVE: Abdominal dressing clean/dry/intact Discharge instructions reinforced with patient WBC elevated likely due to post op inflammation and post surgical response She is afebrile, vitals are stable, spoke to her in detail that if she has a fever or feels weak, she is to call Dr. Moran or return to ER. Vital Signs Period Temp Pulse Resp BP Sys/Mckeon Pulse Ox Last 24 Hr 98 F-98.8 F 60-79 13-20 106-126/60-72 96-100 PHYSICAL EXAM GENERAL: The patient is awake, alert, and fully oriented, in no acute distress. HEAD: Normal with no signs of trauma. EYES: PERRL, extraocular movements intact, sclera anicteric, conjunctiva clear. No ptosis. ENT: Ears normal, nares patent, oropharynx clear without exudates, moist mucous membranes. NECK: Trachea midline, full range of motion, supple. LUNGS: anterior Breath sounds clear HEART: Regular rate and rhythm ABDOMEN: s/p lap sosa, dressing c/d/i EXTREMITIES: 2+ pulses, warm, well-perfused, no edema. NEUROLOGICAL: Normal speech, gait not observed. PSYCH: Normal mood, normal affect.. LABS Laboratory Results - last 24 hr 03/14/17 03/14/17 07:34 07:34 WBC 18.3 H D RBC 3.74 Hgb 10.6 L D Hct 32.7 MCV 87.3 MCHC 32.5 RDW 13.8 Plt Count 259 MPV 8.6 Neutrophils % 84.9 H D Lymphocytes % 7.9 L D Monocytes % 7.0 Eosinophils % 0.1 D Basophils % 0.1 Sodium 141 Potassium 3.7 Chloride 107 Carbon Dioxide 24 Anion Gap 10 BUN 7 D Creatinine 0.8 Creat Clearance w eGFR > 60 Random Glucose 93 Calcium 8.8 Total Bilirubin 0.6 AST 29 D ALT 28 D Alkaline Phosphatase 68 Total Protein 5.9 L Albumin 2.9 L HOSPITAL COURSE: Date of Admission:03/12/17 Date of Discharge: 03/14/17 ASSESSMENT/PLAN: Patient is a 51 year old female with no significant past medical history who presents to the emergency department on 03/12/2017 s/p partial hysterectomy with constant abdominal pain and vomiting. On admission she denied chest pain, shortness of breath, headache and dizziness. She is s/p lap. sosa on 03/13/[address] Moran. She denies fever, chills, nausea, vomit, diarrhea and constipation. GI: Biliary colic/cholelithiasis - s/p POD #1 - resolved Assessment/Plan: s/p laparoscopic cholecystectomy on 03/13/2017 Monitor post surgery site, discharge instructions discussed with pt Dressing is clean/dry/intact Monitor surgical site Hematology: Leukocytosis - acute/outpatient monitoring post surgery with Dr. Moran Assessment/Plan: WBC elevated @ 18, pt is afebrile, non toxic appearing WBC elevated likely due to post op inflammation and post surgical response Repeat CBC as outpatient Spoke to patient about sign/symptoms to look out for (fevers, abdominal dressing drainage) Disposition: Follow up with Dr. Moran next Friday. Post op instructions discussed with patient, patient verbalized understanding. Full Code. Minutes to complete discharge: 45 Discharge Summary Reason For Visit: CHOLELITHIASIS Current Active Problems Biliary colic (Acute) Cholecystitis (Acute) DVT prophylaxis (Acute) Condition: Stable - Instructions Diet, Activity, Other Instructions: Dr Bello's Discharge Instructions Dear Zohaib, Post Operative Instructions Physical activity Resume your normal everyday activity as tolerated no heavy lifting or exercise until seen by your surgeon. You may walk unlimited cathryn of and climb stairs. You may resume driving the car when you feel safe and comfortable behind the wheel. Wound care If you have a bandage, leave it on, and keep dry for 48-72 hours. After that time discard the outer bandage. If there are tapes on the skin under the outer bandage, leave them in place. They will peel off in the next 7 to 10 days. Do Not Peel them off. You may shower the day after surgery. If there are tapes present on the skin, you may shower over them. Diet There are no dietary restrictions. Eat healthy, high-fiber foods. Drink 6 to 8 glasses of liquid each day. This will assist in keeping your bowels are regular. Pain management You may take Tylenol or acetaminophen or Ibuprofen (for example, Motrin, Advil etc.) Any pain prescription medication ordered should be taken as prescribed for moderate to severe pain. Call Dr. Bello for any of the following: Severe pain not relieved by medication Fever of 101 or higher Excessive bleeding or drainage on dressing Call the office at [phone] for an appointment 03/19/17 Referrals: Benjamin Bello MD [Staff Physician] - Meena Olivera NP [Primary Care Provider] - Disposition: HOME - Home Medications Comprehensive Discharge Medication List: Ambulatory Orders Oxycodone HCl/Acetaminophen [Percocet 5-325 mg Tablet] 1 tab PO Q6H PRN #20 tablet MDD 4 03/14/17 This patient is new to me today: No Emergency Visit: Yes ED Registration Date: 03/12/17 Care time: The patient presented to the Emergency Department on the above date and was hospitalized for further evaluation of their emergent condition. Critical Care patient: No - Discharge Referral Referred to [facility] Med P.C.: No
--- NOTE | 2017-03-14 17:08 | PATH ---
Surgical Pathology Report Patient Name: ANTOINETTE FINCH [facility]. Rec. #: [id number] /Age/Gender: 1965 (Age: 51) / F Account: [id number] Location: [address] [place] [address]/[facility] Taken: 03/13/2017 Received: 03/13/2017 Reported: 03/14/2017 Physicians: Benjamin Bello MD Specimen(s) Received GALLBLADDER Clinical History Cholelithiasis Final Diagnosis GALLBLADDER, CHOLECYSTECTOMY: CHRONIC CHOLECYSTITIS AND CHOLELITHIASIS. Electronically Signed Campbell Menjivar M.D. Gross Description Received in formalin, labeled "gallbladder," is a 9.0 x 2.7 x 2.5 cm. gallbladder with a 0.2 cm. in length portion of cystic duct attached. The outer surface is howard-pink and varies from smooth to shaggy. The lumen contains green, sludgelike bile as well as 4 howard-yellow, irregular choleliths averaging 1.5 cm in greatest dimension. The mucosa is howard, focally eroded and trabeculated. The wall of the gallbladder ranges from 0.1-0.5 cm. in thickness. Senior Software Analyst sections are submitted in one cassette. /03/13/2017 [facility]03/13/2017
--- NOTE | 2017-03-15 15:16 | OP ---
DATE OF OPERATION: DATE OF DICTATION: 03/15/2017 PROCEDURE: Laparoscopic cholecystectomy PREOPERATIVE DIAGNOSIS: 1. Symptomatic biliary colic 2. Cholelithiasis 3. Chronic cholecystitis POSTOPERATIVE DIAGNOSIS: 1. Symptomatic biliary colic 2. Cholelithiasis 3. Chronic cholecystitis SURGEON: Benjamin Bello MD MEDICAID BILLER: Lindsey Arroyo PA-C ANESTHESIA: General ESTIMATED BLOOD LOSS: 20 mL FLUID REPLACEMENT: Crystalloid DRAINS: None SPECIMENS: Gallbladder and contents to pathology OPERATIVE FINDINGS: There was a partially-intrahepatic gallbladder with chronic cholecystitis and cholelithiasis. There were adhesions from previous [employer] surgery. The rest of the findings are unremarkable. PROCEDURE: The patient was placed on the operating room table in supine position. After the induction of general anesthesia, a timeout was taken, and the abdomen was prepped with ChloraPrep and draped in sterile fashion. A pneumoperitoneum was established above the umbilicus using a Veress needle. Once 15 mmHg pressure was obtained, a 5-mm port was placed and laparoscopy carried out, and the previously noted findings were observed. A subxiphoid 12-mm port and lateral 5-mm port were placed, and then the gallbladder was placed in cephalad and lateral traction and dissection begun in the triangle of Calot. The peritoneum was opened medially and laterally over the neck of the gallbladder and the cystic duct identified, coursing from the neck of the gallbladder distally to the common bile duct. It was dissected proximally and distally full length. Similarly, the cystic artery was identified and with it s anterior and posterior branches. It was dissected proximally and distally full length as well, and then a critical view of safety was taken. The duct was divided between 2 large hemoclips proximally and distally using the Endoshears. The artery and its branches were similarly clipped and divided. Next, the gallbladder was removed from the liver bed in a retrograde fashion using electrocautery. Prior to removal from the edge of the liver, hemostasis was checked for and noted to be good. The gallbladder was then removed from the edge of the liver, placed in an EndoCatch and brought out to the subxiphoid port. A pneumoperitoneum was re-established. Copious irrigation was carried out and hemostasis verified again. All port sites were then removed under laparoscopic vision without evidence of bleeding from the port sites. The pneumoperitoneum was evacuated and the port sites infiltrated with 0.5% Marcaine and the skin edges closed in all cases with 4-0 Biosyn suture followed by Steri-Strips and Band-Aid dressings. The patient was then aroused from general anesthesia and transferred to the post anesthesia care unit in stable condition, awake and alert. I, Benjamin Bello, was physically present in the operating room from the time the patient was placed on the operating room table until she was transferred to the post anesthesia care unit in my accompaniment. MD HUNG Nelson/[id number]
== END 2017-03-14 11:28 | disposition home or self-care (01) | DRG 419 ==
LOC: JER 02:46 → JERBED 09:48 → J6S 11:43
PROVIDERS: ADMIT Internal Medicine; ATTEND Nurse Practitioner Family
PROC: 0FT44ZZ Resection of Gallbladder, Percutaneous Endoscopic Approach (ICD-10-PCS; principal; 2017-03-13 11:00)
DX: K80.12 Calculus of gallbladder with acute and chronic cholecystitis without obstruction (principal); D72.829 Elevated white blood cell count, unspecified
CPT/HCPCS: 36415; 74177-TC; 76705-TC; 80053; 81003; 81015; 82150; 83690; 83735; 84703; 85025; 85610; 86850; 86900; 86901; 88304-TC; 94760; 99284-25

== ENCOUNTER 2017-08-10 16:13 | Emergency (ER) | payer OTHER ==
[2017-08-10 16:20] VITALS: BP 140/76; PULSE 79; TEMP 98.6; BMI 27.4
--- NOTE | 2017-08-10 16:46 | PDOC ---
History of Present Illness - General Chief Complaint: Pain, Acute Stated Complaint: HAND INJURY Time Seen by Provider: 08/10/17 16:22 History Source: Patient Exam Limitations: No Limitations - History of Present Illness Initial Comments: 08/10/17 16:40 51 yr female with history of ganglion cyst removal one tear ago left hand has continued pain on and off with swelling to the site on and off. Pt has seen who gives her cortisone injections that helps every now and then. Pt denies any recent trauma. Severity: reports: mild Upper Extremity Pain Location: left: hand Past History - Past Medical History Allergies/Adverse Reactions: Allergies Allergy/AdvReac Type Severity Reaction Status Date / Time No Known Drug Allergies Allergy Verified 08/10/17 16:15 Home Medications: Ambulatory Orders Naproxen [Naprosyn -] 500 mg PO BID PRN #14 tablet 08/10/17 Anemia: Yes Asthma: No Cancer: No Cardiac Disorders: No CVA: No COPD: No CHF: No Dementia: No Diabetes: No GI Disorders: No Disorders: No HTN: No Hypercholesterolemia: No Liver Disease: No Seizures: No Thyroid Disease: No - Surgical History Abdominal Surgery: No Appendectomy: No Cardiac Surgery: No Cholecystectomy: No Lung Surgery: No Neurologic Surgery: No Orthopedic Surgery: No - Reproductive History Cervical CA: No Dysfunctional Uterine Bleeding: No Ectopic : No Endometrial CA: No Polycystic Ovaries: No Therapeutic (s) & number: No Tubal Ligation: No - Immunization History Immunization Up to Date: Yes - Suicide/Smoking/Psychosocial Hx Smoking History: Never smoked Have you smoked in the past 12 months: No Number of Cigarettes Smoked Daily: 0 Cigars Per Day: 0 Information on smoking cessation initiated: No Hx Alcohol Use: No Drug/Substance Use Hx: No Substance Use Type: None Hx Substance Use Treatment: No Review of Systems - Review of Systems Able to Perform ROS?: Yes Is the patient limited Serbian proficient: No Constitutional: No: Symptoms Reported HEENTM: No: Symptoms Reported Respiratory: No: Symptoms reported Cardiac (ROS): No: Symptoms Reported ABD/GI: No: Symptoms Reported : No: Symptoms Reported Musculoskeletal: Yes: Symptoms Reported *Physical Exam - Vital Signs Last Vital Signs Temp Pulse Resp BP Pulse Ox 98.6 F 79 15 140/76 99 08/10/17 16:16 08/10/17 16:16 08/10/17 16:16 08/10/17 16:16 08/10/17 16:16 - Physical Exam General Appearance: Yes: Nourished, Appropriately Dressed HEENT: positive: EOMI, ALFREDO, Normal ENT Inspection, TMs Normal, Pharynx Normal Neck: positive: Supple Respiratory/Chest: positive: Lungs Clear, Normal Breath Sounds Cardiovascular: positive: Regular Rhythm, Regular Rate Extremity: positive: Normal Capillary Refill, Normal Range of Motion, Tender ( left wrist over the wrist crease dorsal surface healed laceration from ganglion , no redness FROM ) Integumentary: positive: Normal Color, Dry, Warm Neurologic: positive: Fully Oriented, Alert, Normal Mood/Affect, Normal Response , Motor Strength 5/5 Procedures - Splinting Pre-Made Type: velcro ED Treatment Course - RADIOLOGY Radiology Studies Ordered: Category Date Time Status HAND- LEFT [RAD] Stat Radiology 08/10/17 16:40 Ordered Medical Decision Making - Medical Decision Making 08/10/17 16:44 cc: left wrist intermittent pain after having ganglion cyst surgery one year ago pt states the pain is worse when using her left hand to lift something , or to text on her phone. will get xray pt encourage to follow up with the orthopedist this week for follow up 08/10/17 18:36 wrist splint given *DC/Admit/Observation/Transfer Diagnosis at time of Disposition: Hand pain Qualifiers: Laterality: left Qualified Code(s): M79.642 - Pain in left hand - Discharge Dispostion Disposition: HOME Condition at time of disposition: Good - Prescriptions Prescriptions: Naproxen [Naprosyn -] 500 mg PO BID PRN #14 tablet PRN Reason: Pain - Referrals Referrals: Meena Olivera NP [Primary Care Provider] - - Patient Instructions Additional Instructions: follow with this week use the splint while awake remove to sleep if it doesn't bother you take naprosyn for pain as needed
== END 2017-08-10 17:11 | disposition home or self-care (01) ==
LOC: JERFT 16:13
PROC: 2W3DX1Z Immobilization of Left Lower Arm using Splint (ICD-10-PCS; principal; 2017-08-10)
DX: M79.642 Pain in left hand (principal)
CPT/HCPCS: 73130-TC-LT; 99281-25

== ENCOUNTER 2017-09-29 09:02 | Emergency (ER) | payer OTHER ==
[2017-09-29 09:25] VITALS: BP 143/87; PULSE 74; TEMP 98.6; BMI 26.6
[2017-09-29] MEDS ORDERED: METOCLOPRAMIDE HCL INJECTION 10 MG/2 ML VIAL IVPUSH ONE (09:54)
[2017-09-29] MEDS ORDERED: KETOROLAC TROMETHAMINE 30 MG/1 ML VIAL IVPUSH ONE (09:54)
[2017-09-29] MEDS ORDERED: SODIUM CHLORIDE 0.9% 1000 ML INFUS.BAG IV ONE (09:55)
--- NOTE | 2017-09-29 09:56 | PDOC ---
History of Present Illness - General Chief Complaint: Headache Stated Complaint: HEADACHE Time Seen by Provider: 09/29/17 09:41 - History of Present Illness Initial Comments: 09/29/17 09:55 CHIEF COMPLAINT: headache HISTORY OF PRESENT ILLNESS: 51 yo F with no significant PMH s/p ganglion cyst removal and partial hysterectomy presents to fast track with frontal headache x 2 weeks. Patient denies any nausea, vomiting, or diarrhea, fever, or chills. Patient denies any history of headaches but medical records suggest otherwise. Patient reports that she has an appointment with her primary care doctor in two days "but could not wait." Patient also reports that she was seen by urgent care yesterday and was prescribed Flonase but has not taken it because she "doesn't think that's what it is." PAST MEDICAL HISTORY: Denies past medical history FAMILY HISTORY: Denies SOCIAL HISTORY: Denies tobacco, alcohol, illicit drug use. SURGICAL HISTORY: as per HPI ALLERGIES: No known drug allergies REVIEW OF SYSTEMS General/Constitutional: Denies fever or chills. Denies weakness, weight change. HEENT: Denies change in vision. Denies ear pain or discharge. Denies sore throat. Cardiovascular: Denies chest pain or shortness of breath. Respiratory: Denies cough, wheezing, or hemoptysis. Gastrointestinal: Denies nausea, vomiting, diarrhea or constipation. Denies rectal bleeding. Genitourinary: Denies dysuria, frequency, or change in urination. Musculoskeletal: Denies joint or muscle swelling or pain. Denies neck or back pain. Skin and breasts: Denies rash or easy bruising. Neurologic: LAMA x 2 weeks, "like a throbbing pain" Denies vertigo, loss of consciousness, or loss of sensation. PHYSICAL EXAM General Appearance: Well-appearing, appropriately dressed. No apparent distress. HEENT: EOMI, PERRLA, normal ENT inspection, normal voice, TMs normal, pharynx normal. No conjunctival pallor. No photophobia, scleral icterus. Respiratory/Chest: Lungs CTAB. Cardiovascular: RRR. S1, S2. Gastrointestinal/Abdominal: Normal bowel sounds. Abdomen soft, non-distended. No tenderness or rebound tenderness. No organomegaly, pulsatile mass, guarding , hernia, hepatomegaly, splenomegaly. Musculoskeletal/Extremities: Normal inspection. FROM of all extremities, normal capillary refill. Pelvis Stable. No CVA tenderness. No tenderness to extremities, pedal edema, swelling, erythema or deformity. Integumentary: Appropriate color, dry, warm. No cyanosis, erythema, jaundice or rash Neurologic: national accounts sales II-XII intact. Fully oriented, alert. Appropriate mood/affect. Motor strength 5/5. No appreciable EOM palsy, facial droop or sensory deficit. Past History - Past Medical History Allergies/Adverse Reactions: Allergies Allergy/AdvReac Type Severity Reaction Status Date / Time No Known Drug Allergies Allergy Verified 09/29/17 09:22 Home Medications: Ambulatory Orders Acetaminophen/Caffeine [Excedrin Tension Headache Cplt] 1 each PO TID PRN #21 tablet 09/29/17 Anemia: Yes Asthma: No Cancer: No Cardiac Disorders: No CVA: No COPD: No CHF: No Dementia: No Diabetes: No GI Disorders: No Disorders: No HTN: No Hypercholesterolemia: No Liver Disease: No Seizures: No Thyroid Disease: No - Surgical History Abdominal Surgery: No Appendectomy: No Cardiac Surgery: No Cholecystectomy: No Lung Surgery: No Neurologic Surgery: No Orthopedic Surgery: No - Reproductive History Cervical CA: No Dysfunctional Uterine Bleeding: No Ectopic : No Endometrial CA: No Polycystic Ovaries: No Therapeutic (s) & number: No Tubal Ligation: No - Immunization History Immunization Up to Date: Yes - Suicide/Smoking/Psychosocial Hx Smoking History: Never smoked Have you smoked in the past 12 months: No Number of Cigarettes Smoked Daily: 0 Cigars Per Day: 0 Information on smoking cessation initiated: No Hx Alcohol Use: No Drug/Substance Use Hx: No Substance Use Type: None Hx Substance Use Treatment: No Neuro Specific PMHX - Complaint Specific PMHX Glaucoma: No Herniated Disk: No Laminectomy: No Migraine: No Multiple Sclerosis: No TIA: No *Physical Exam - Vital Signs Last Vital Signs Temp Pulse Resp BP Pulse Ox 98.6 F 74 18 143/87 100 09/29/17 09:23 09/29/17 09:23 09/29/17 09:23 09/29/17 09:23 09/29/17 09:23 Medical Decision Making - Medical Decision Making 09/29/17 11:11 51 yo F with no significant PMH s/p ganglion cyst removal and partial hysterectomy presents to fast track with frontal headache x 2 weeks. No focal neurological deficits on exam. PAtient denies any change of due to hx of hysterectomy. -IVF, Toradol, Reglan, Benadryl Patient reassessed after administration of medications. Patient states she is "definitely" feeling much better at this time. Advised patient to follow up with PCP as planned this week and to follow up with neurology by the end of the week. Advised patient of signs and symptoms for return to ER; patient verbalized understanding and agrees to plan. *DC/Admit/Observation/Transfer Diagnosis at time of Disposition: Headache Qualifiers: Headache type: unspecified Headache chronicity pattern: acute headache Intractability: not intractable Qualified Code(s): R51 - Headache - Discharge Dispostion Disposition: HOME Condition at time of disposition: Stable Admit: No - Prescriptions Prescriptions: Acetaminophen/Caffeine [Excedrin Tension Headache Cplt] 1 each PO TID PRN #21 tablet PRN Reason: Headache - Referrals Referrals: Steven Matos MD [Staff Physician] - - Patient Instructions Printed Discharge Instructions: DI for Headache Additional Instructions: Please follow up with your primary care doctor in two days as planned. Follow up with neurology by the end of the week as well. If you develop any severe, "thunderclap" headche, or any weakness, slurred speech, loss of memory, change in behavior, vomiting, fever, chills, or any new or worsening symptoms, please return to the ER immediately. - Post Discharge Activity Forms/Work/School Notes: Back to Work
[2017-09-29] MEDS ORDERED: METOCLOPRAMIDE HCL INJECTION 10 MG/2 ML VIAL ONE (10:23)
[2017-09-29] MEDS ORDERED: KETOROLAC TROMETHAMINE 30 MG/1 ML VIAL ONE (10:23)
== END 2017-09-29 11:44 | disposition home or self-care (01) ==
LOC: JERFT 09:02 → JER 09:02 → JERFT 11:44
DX: R51 Headache (principal)
CPT/HCPCS: 99281-25

== ENCOUNTER 2017-10-12 17:50 | Emergency (ER) | payer OTHER ==
[2017-10-12 18:03] VITALS: TEMP 99.2; BMI 27.4
--- NOTE | 2017-10-12 18:57 | PDOC ---
History of Present Illness - General Chief Complaint: Pain Stated Complaint: FATIGUE Time Seen by Provider: 10/12/17 18:34 History Source: Patient Exam Limitations: No Limitations - History of Present Illness Initial Comments: 10/12/17 18:52 51-year-old female with no past medical history except for anemia. Patient was seen here 2 weeks ago for the same but now complaining of fever stating symptoms have returned and worsened. Patient also complaining of dizziness and myalgia. Patient states last week was given iron pills by her physician and B- 12 injection. Patient states has never had a headache like this before and denies seeing a neurologist or a previous head CT. Timing/Duration: reports: increasing Severity: Yes: moderate Associated Symptoms: reports: fatigue, fever/chills, other (throbbing frontal headache). denies: numbness in legs/feet, paresthesia Past History - Past Medical History Allergies/Adverse Reactions: Allergies Allergy/AdvReac Type Severity Reaction Status Date / Time No Known Drug Allergies Allergy Verified 10/12/17 18:03 Home Medications: Ambulatory Orders NK [No Known Home Medication] 10/12/17 Anemia: Yes Asthma: No Cancer: No Cardiac Disorders: No CVA: No COPD: No CHF: No Dementia: No Diabetes: No GI Disorders: No Disorders: No HTN: No Hypercholesterolemia: No Liver Disease: No Seizures: No Thyroid Disease: No - Surgical History Abdominal Surgery: No Appendectomy: No Cardiac Surgery: No Cholecystectomy: Yes Lung Surgery: No Neurologic Surgery: No Orthopedic Surgery: No - Reproductive History Cervical CA: No Dysfunctional Uterine Bleeding: No Ectopic : No Endometrial CA: No Polycystic Ovaries: No Therapeutic (s) & number: No Tubal Ligation: No - Immunization History Immunization Up to Date: Yes - Suicide/Smoking/Psychosocial Hx Smoking History: Never smoked Have you smoked in the past 12 months: No Number of Cigarettes Smoked Daily: 0 Cigars Per Day: 0 Hx Alcohol Use: Yes (SOCIAL) Drug/Substance Use Hx: No Substance Use Type: None Hx Substance Use Treatment: No Patient Lives Alone: No Lives with/in: spouse/SO Neuro Specific PMHX - Complaint Specific PMHX Glaucoma: No Herniated Disk: No Laminectomy: No Migraine: No Multiple Sclerosis: No TIA: No Review of Systems - Review of Systems Able to Perform ROS?: Yes Constitutional: Yes: Fever, Weakness. No: Unintentional Wgt. Loss HEENTM: No: Symptoms Reported Respiratory: No: Symptoms reported Cardiac (ROS): No: Symptoms Reported ABD/GI: No: Symptoms Reported : No: Symptoms Reported Musculoskeletal: Yes: Joint Pain (upper extremities) Integumentary: No: Symptoms Reported Neurological: Yes: Headache *Physical Exam - Vital Signs Last Vital Signs Temp Pulse Resp BP Pulse Ox 99.2 F 101 H 20 152/86 100 10/12/17 18:00 10/12/17 18:00 10/12/17 18:00 10/12/17 18:00 10/12/17 18:00 - Physical Exam General Appearance: Yes: Nourished, Appropriately Dressed. No: Apparent Distress HEENT: positive: EOMI, ALFREDO, TMs Normal, Pharynx Normal, Pale Conjunctivae (mild ) Neck: positive: Supple Respiratory/Chest: positive: Lungs Clear, Normal Breath Sounds. negative: Respiratory Distress, Accessory Muscle Use Cardiovascular: positive: Regular Rhythm, Tachycardia. negative: Murmur Gastrointestinal/Abdominal: positive: Soft. negative: Tenderness Integumentary: positive: Normal Color, Warm, Moist Neurologic: positive: Motor Strength 5/5 (ambulatory) ED Treatment Course - LABORATORY CBC & Chemistry Diagram: 10/12/17 21:00 10/12/17 21:00 Medical Decision Making - Medical Decision Making 10/12/17 18:56 Patient initially triaged for fast track. After reviewing patient's history and performing physical examination. Patient will go to the main ED case discussed with nurse manager diabetes Cici
[2017-10-12 19:45] VITALS: BP 116/82; PULSE 87
[2017-10-12 20:04] LABS: URINE APPEARANCE SLCLOUDY; URINE BILIRUBIN NEGATIVE (NEGATIVE); URINE BLOOD 2+ (NEGATIVE); URINE COLOR LTYELLOW; URINE GLUCOSE (UA) NEGATIVE (NEGATIVE); URINE KETONE NEGATIVE (NEGATIVE); URINE NITRITE NEGATIVE (NEGATIVE); URINE PROTEIN NEGATIVE (NEGATIVE); URINE UROBILINOGEN NEGATIVE mg/dL (0.2-1.0)
--- NOTE | 2017-10-12 20:15 | PDOC ---
*Physical Exam - Vital Signs Last Vital Signs Temp Pulse Resp BP Pulse Ox 99.2 F 87 18 116/82 97 10/12/17 18:00 10/12/17 19:40 10/12/17 19:40 10/12/17 19:40 10/12/17 19:40 <Princess Gilliam - Last Filed: 10/13/17 00:03> - Vital Signs Last Vital Signs Temp Pulse Resp BP Pulse Ox 99.2 F 87 18 116/82 97 10/12/17 18:00 10/12/17 19:40 10/12/17 19:40 10/12/17 19:40 10/12/17 19:40 - Physical Exam Comments: 10/12/17 20:14 Patient is a 51-year-old female history of anemia, cholecystectomy, ganglion cystectomy, hysterectomy complaining of headache 2 weeks. Patient states her headache was gradual onset right frontal which has progressively worsened over time now headache is 5/10, constant and throbbing, unable to sleep due to the pain. States she has associated dizziness - lightheadedness especially on standing up. She has no history of headache. Denies any photophobia, phonophobia , nausea, vomiting, neck stiffness, recent travel. States last this a.m. she started having some generalized body soreness and fever of 100.9 at home. States she was seen by her PMD 2 weeks ago for the same headache and was referred to neurologist, appointment scheduled for 10/23/17. She was also seen in the emergency room one week ago given medications for the headache. She has also been taking Tylenol at home with no relief of symptoms. PMD: Dr. Villa PMHX: as above, PSOCHX: neg cig, drug, etoh ALL: NKDA GENERAL/CONSTITUTIONAL: [No fever or chills. No weakness. No weight change.] HEAD, EYES, EARS, NOSE AND THROAT: [No change in vision. No ear pain or discharge. No sore throat.] CARDIOVASCULAR: [No chest pain or shortness of breath.] RESPIRATORY: [No cough, wheezing, or hemoptysis.] GASTROINTESTINAL: [No nausea, vomiting, diarrhea or constipation. No rectal bleeding.] GENITOURINARY: [No dysuria, frequency, or change in urination.] MUSCULOSKELETAL: [No joint or muscle swelling or pain. No neck or back pain.] SKIN AND BREASTS: [No rash or easy bruising.] NEUROLOGIC: (+) headache, (-) vertigo, loss of consciousness, or loss of sensation.] PSYCHIATRIC: [No depression or anxiety.] ENDOCRINE: [No increased thirst. No abnormal weight change.] HEMATOLOGIC/LYMPHATIC: [No anemia, easy bleeding, or history of blood clots.] ALLERGIC/IMMUNOLOGIC: [No hives or skin allergy. No latex allergy.] GENERAL: [The patient is awake, alert, and fully oriented, in no acute distress. ] HEAD: [Normal with no signs of trauma.] EYES: [Pupils equal, round and reactive to light, extraocular movements intact, sclera anicteric, conjunctiva clear.] ENT: [Ears normal, nares patent, oropharynx clear without exudates. Moist mucous membranes.] NECK: [Normal range of motion, supple without lymphadenopathy, JVD, or masses.] LUNGS: [Breath sounds equal, clear to auscultation bilaterally. No wheezes, and no crackles.] HEART: [Regular rate and rhythm, normal S1 and S2 without murmur, rub.] ABDOMEN: [Soft, nontender, normoactive bowel sounds. No guarding, no rebound. No masses.] EXTREMITIES: [Normal range of motion, no edema. No clubbing or cyanosis. No cords, erythema, or tenderness.] NEUROLOGICAL: [Cranial nerves II through XII grossly intact. Normal speech, normal gait.] PSYCH: [Normal mood, normal affect.] SKIN: [Warm, Dry, normal turgor, no rashes or lesions noted.] <Nasra Merlos - Last Filed: 10/13/17 01:20> ED Treatment Course - LABORATORY CBC & Chemistry Diagram: 10/12/17 21:00 10/12/17 21:00 - ADDITIONAL ORDERS Additional order review: Laboratory Results 10/12/17 10/12/17 21:00 19:50 Sodium 139 Potassium 4.8 D Chloride 104 Carbon Dioxide 26 Anion Gap 9 BUN 13 D Creatinine 0.9 Random Glucose 79 Calcium 9.2 Urine Color Ltyellow Urine Appearance Slcloudy Urine pH 5.0 D Ur Specific [place] 1.012 Urine Protein Negative Urine Glucose (UA) Negative Urine Ketones Negative Urine Blood 2+ H Urine Nitrite Negative Urine Bilirubin Negative Urine Urobilinogen Negative Ur Leukocyte Esterase Negative Urine WBC (Auto) 1 Urine RBC (Auto) 13 Ur Epithelial Cells Few Urine Mucus Rare Urine HCG, Qual Negative 10/12/17 21:00 RBC 4.34 MCV 87.8 MCHC 33.2 RDW 13.7 MPV 8.5 Neutrophils % 77.7 Lymphocytes % 13.4 D Monocytes % 7.8 Eosinophils % 0.3 D Basophils % 0.8 D - Medications Given in the ED: ED Medications Discontinued Medications Generic Name Dose Route Start Last Admin Trade Name Khalif PRN Reason Stop Dose Admin Diphenhydramine HCl 50 mg 10/12/17 20:44 10/12/17 22:13 Benadryl Injection - IVPB 10/12/17 20:45 50 mg ONCE ONE Administration Ketorolac Tromethamine 30 mg 10/12/17 20:44 10/12/17 21:36 Toradol Injection - IVPUSH 10/12/17 20:45 30 mg ONCE ONE Administration Metoclopramide HCl 10 mg 10/12/17 20:44 10/12/17 21:36 Reglan Injection - IVPB 10/12/17 20:45 10 mg ONCE ONE Administration Sodium Chloride 1,000 ml 10/12/17 20:44 10/12/17 21:36 Normal Saline - IV 10/12/17 20:45 1,000 ml ONCE ONE Administration <Princess Gilliam - Last Filed: 10/13/17 00:03> - LABORATORY CBC & Chemistry Diagram: 10/12/17 21:00 10/12/17 21:00 - ADDITIONAL ORDERS Additional order review: Laboratory Results 10/12/17 19:50 Urine Color Ltyellow Urine Appearance Slcloudy Urine pH 5.0 D Ur Specific [place] 1.012 Urine Protein Negative Urine Glucose (UA) Negative Urine Ketones Negative Urine Blood 2+ H Urine Nitrite Negative Urine Bilirubin Negative Urine Urobilinogen Negative Urine HCG, Qual Negative <Nasra Merlos - Last Filed: 10/13/17 01:20> Medical Decision Making - Medical Decision Making 10/13/17 00:03 Patient Name: ANTOINETTE FINCH THIS IS A PRELIMINARY REPORT FROM [facility] DATE OF SERVICE: 2017-10-12 23:07:40 IMAGES: 134 EXAM: CT head without contrast HISTORY: Head ache COMPARISON: None. FINDINGS: There is no evidence of acute infarction. There is no hemorrhage. No mass lesion is seen. There is no skull fracture. Visualized portions of the paranasal sinuses are essentially clear. Mastoid air cells are normally pneumatized. THIS DOCUMENT HAS BEEN ELECTRONICALLY SIGNED <Princess Gilliam - Last Filed: 10/13/17 00:03> - Medical Decision Making 10/12/17 20:15 Patient is a 51-year-old female history of anemia, cholecystectomy, ganglion cystectomy, hysterectomy complaining of headache 2 weeks, with no h/o headache with dizziness. will get ct head r/o mass, labs check h/h meds reglan/benadryl/toradol reassess 10/13/17 01:16 Laboratory Tests 10/12/17 10/12/17 23:40 23:40 ESR 11 PT with INR 12.70 H INR 1.12 PTT (Actin FS) 26.2 [address] Patient with neg ct scan will discharge with follow up with pmd and neurology I discussed the physical exam findings, ancillary test results and final diagnoses with the patient. I answered all of the patient's questions. The patient was satisfied with the care received and felt comfortable with the discharge plan and treatment plan. The Patient agrees to follow up with the primary care physician within 24-72 hours <Nasra Merlos - Last Filed: 10/13/17 01:20> *DC/Admit/Observation/Transfer <Princess Gilliam - Last Filed: 10/13/17 00:03> <Nasra Merlos - Last Filed: 10/13/17 01:20> Diagnosis at time of Disposition: Frontal headache - Discharge Dispostion Disposition: HOME Condition at time of disposition: Stable - Patient Instructions Printed Discharge Instructions: DI for Headache Additional Instructions: Your Discharge Instructions: You must call primary care physician within 24 hours to arrange follow-up. Return to the Emergency Department with any new, persistent or worsening symptoms, for fever, chills, SOB, dizziness or any other concerning changes that may occur. Keep his neurology appointment as scheduled. Continue Tylenol and Motrin for pain until seen by neurology. - Post Discharge Activity Forms/Work/School Notes: Back to Work
[2017-10-12 20:20] LABS: URINE MUCUS RARE; URINE RBC 13 /hpf (0-3); URINE WBC 1 /hpf (3-5)
[2017-10-12] MEDS ORDERED: SODIUM CHLORIDE 0.9% 1000 ML INFUS.BAG IV ONE (20:44)
[2017-10-12] MEDS ORDERED: METOCLOPRAMIDE HCL INJECTION 10 MG/2 ML VIAL IVPB ONE (20:44)
[2017-10-12] MEDS ORDERED: KETOROLAC TROMETHAMINE 30 MG/1 ML VIAL IVPUSH ONE (20:44)
[2017-10-12] MEDS ORDERED: KETOROLAC TROMETHAMINE 30 MG/1 ML VIAL ONE (21:08)
[2017-10-12] MEDS ORDERED: METOCLOPRAMIDE HCL INJECTION 10 MG/2 ML VIAL ONE (21:08)
[2017-10-12 21:14] LABS: BASOPHIL 0.8 % (0-2.0); EOSINOPHIL 0.3 % (0-4.5); MCH 29.2 pg (25.7-33.7); MCHC 33.2 g/dl (32.0-36.0); MEAN CELL VOLUME 87.8 fl (80-96); MEAN PLT VOLUME 8.5 fl (7.5-11.1); NEUTROPHILS 77.7 % (42.8-82.8); PLATELET COUNT 283 K/MM3 (134-434); RDW 13.7 % (11.6-15.6); WHITE BLOOD COUNT 7.7 K/mm3 (4.0-10.0)
[2017-10-12 21:33] LABS: ANION GAP 9 (8-16); CALCIUM 9.2 mg/dL (8.5-10.1); CO2 26 mmol/L (21-32); CREATININE 0.9 mg/dL (0.55-1.02); GLUCOSE,RANDOM 79 mg/dL (74-106)
[2017-10-12 22:51] LABS: URINE LEUK ESTERASE Negative (NEGATIVE)
[2017-10-13 00:07] LABS: INR 1.12 (0.82-1.09); PROTHROMBIN TIME (PATIENT) 12.7 SEC (9.98-11.88)
[2017-10-13 00:10] LABS: ACTIVATED PTT 26.2 SECONDS (26.9-34.4)
== END 2017-10-13 01:33 | disposition home or self-care (01) ==
LOC: JERFT 17:50 → JER 17:50
PROC: 3E0333Z Introduction of Anti-inflammatory into Peripheral Vein, Percutaneous Approach (ICD-10-PCS; principal; 2017-10-12)
PROC: 3E033GC Introduction of Other Therapeutic Substance into Peripheral Vein, Percutaneous Approach (ICD-10-PCS; 2017-10-12)
PROC: 3E033GC Introduction of Other Therapeutic Substance into Peripheral Vein, Percutaneous Approach (ICD-10-PCS; 2017-10-12)
DX: R51 Headache (principal); D64.9 Anemia, unspecified; Z90.710 Acquired absence of both cervix and uterus; Z90.49 Acquired absence of other specified parts of digestive tract
CPT/HCPCS: 36415; 70450-TC; 80048; 81003; 81015; 84703; 85025; 85610; 85651; 85730; 87804; 99283-25

== ENCOUNTER 2017-12-06 20:54 | Emergency (ER) | payer OTHER ==
[2017-12-06 21:01] VITALS: BMI 27.2
--- NOTE | 2017-12-06 21:15 | PDOC ---
History of Present Illness - General History Source: Patient Exam Limitations: No Limitations - History of Present Illness Initial Comments: 12/06/17 21:33 The patient is a 51 year old female s/p partial hysterectomy in 2016 who presents to the ED with complaints of vaginal bleeding that began an hour ago. The patient states that she noticed light pink blood after wiping herself following urination. She also noticed some blood on the towel she was laying on prior. She denies any dark red blood or clots. Upon presentation the patient began to develop suprapubic cramping. The patient denies any blood in her urine or blood per rectum. Since her hysterectomy, the patient has not had a menstrual period and denies any current knowledge of fibroids. She reports being sexually active with one male partner, denies use of condoms. Last time of sexual intercourse was earlier today, before the onset of her symptoms. She denies any recent UTI. She denies any recent illness, fever, or chills. <Ave Joseph - Last Filed: 12/06/17 21:52> <Gamal Bose - Last Filed: 12/07/17 01:11> - General Chief Complaint: Vaginal Bleeding Stated Complaint: vaginal bleeding Time Seen by Provider: 12/06/17 21:13 Past History <Ave Joseph - Last Filed: 12/06/17 21:52> - Past Medical History Anemia: Yes Asthma: No Cancer: No Cardiac Disorders: No CVA: No COPD: No CHF: No Dementia: No Diabetes: No GI Disorders: No Disorders: No HTN: No Hypercholesterolemia: No Liver Disease: No Seizures: No Thyroid Disease: No - Surgical History Abdominal Surgery: No Appendectomy: No Cardiac Surgery: No Cholecystectomy: Yes Lung Surgery: No Neurologic Surgery: No Orthopedic Surgery: No - Reproductive History Cervical CA: No Dysfunctional Uterine Bleeding: No Ectopic : No Endometrial CA: No Polycystic Ovaries: No Therapeutic (s) & number: No Tubal Ligation: No - Immunization History Immunization Up to Date: Yes - Suicide/Smoking/Psychosocial Hx Smoking History: Never smoked Have you smoked in the past 12 months: No Number of Cigarettes Smoked Daily: 0 Cigars Per Day: 0 Information on smoking cessation initiated: No Hx Alcohol Use: No Drug/Substance Use Hx: No Substance Use Type: None Hx Substance Use Treatment: No <Gamal Bose - Last Filed: 12/07/17 01:11> - Past Medical History Allergies/Adverse Reactions: Allergies Allergy/AdvReac Type Severity Reaction Status Date / Time No Known Drug Allergies Allergy Verified 12/06/17 20:59 Home Medications: Ambulatory Orders NK [No Known Home Medication] 10/12/17 Review of Systems - Review of Systems Constitutional: No: Chills, Fever, Weakness Cardiac (ROS): No: Lightheadedness, Syncope : Yes: See HPI Musculoskeletal: No: Muscle Pain All Other Systems: Reviewed and Negative <Gamal Bose - Last Filed: 12/07/17 01:11> *Physical Exam - Vital Signs Last Vital Signs Temp Pulse Resp BP Pulse Ox 97.3 F L 79 16 138/93 100 12/06/17 21:00 12/06/17 21:00 12/06/17 21:00 12/06/17 21:00 12/06/17 21:00 - Physical Exam Comments: 12/06/17 21:52 GENERAL: The patient is awake, alert, and fully oriented, in no acute distress. HEAD: Normal with no signs of trauma. EYES: Pupils equal, round and reactive to light, extraocular movements intact, sclera anicteric, conjunctiva clear. EXTREMITIES: Normal range of motion, no edema. NEUROLOGICAL: Normal speech, normal gait. PSYCH: Normal mood, normal affect. SKIN: Warm, Dry, normal turgor, no rashes or lesions noted. PELVIC: No blood in vault, no laceration, no active bleeding, no discharge, os closed <Ave Joseph - Last Filed: 12/06/17 21:52> - Vital Signs Last Vital Signs Temp Pulse Resp BP Pulse Ox 97.3 F L 79 16 138/93 100 12/06/17 21:00 12/06/17 21:00 12/06/17 21:00 12/06/17 21:00 12/06/17 21:00 <Gamal Bose - Last Filed: 12/07/17 01:11> ED Treatment Course - LABORATORY CBC & Chemistry Diagram: 12/06/17 22:12 12/06/17 22:12 <Gamal Bose - Last Filed: 12/07/17 01:11> Medical Decision Making - Medical Decision Making 12/06/17 21:46 A portion of this note was documented by scribe services under my direction. I have reviewed the details of the note, within reason, and agree with the documentation with the following case summary and management plan written by me. Healthy 51-year-old female with history of partial hysterectomy secondary to fibroids causing anemia presents now with slight vaginal bleeding. Patient noticed blood per vagina and then blood on toilet paper after urinating, this occurred a few hours after otherwise painless intercourse. No menses since her hysterectomy, no complications of bleeding. Has some pelvic cramping, no history of UTI or dysuria/frequency. Afebrile. Urine pending. Abdominal exam is benign, no active bleeding on pelvic exam 51-year-old female with slight vaginal bleeding in the setting of history of partial hysterectomy. Rule out , rule out recurring fibroid, question post intercourse bleed, rule out cystitis. Urinalysis, urine Transvaginal ultrasound Hemodynamically stable, monitor and dispo accordingly 12/06/17 23:32 Hemoglobin normal and at baseline, 12.6. Chemistries are within normal limits. Urinalysis with some blood but no evidence of infection. negative. Currently at ultrasound. 12/07/17 01:01 Ultrasound with nonvisualized uterus (s/p partial hysterectomy), b/l ovaries with normal flow, hemorrhagic R ovarian follicle. no fibroids. 12/07/17 01:08 Had slight spotting after the transvaginal ultrasound, otherwise no further bleeding. Ultrasound shows hemorrhagic follicle in the right ovary, a left ovarian cyst, otherwise normal ovarian flow and no free fluid in the pelvis. The bilateral cysts could be the cause of the patient's pain, unclear etiology of the bleeding. Agrees with discharge plan and [employer] follow-up, understands return criteria. <Gamal Bose - Last Filed: 12/07/17 01:11> *DC/Admit/Observation/Transfer - Attestations Scribe Attestion: 12/06/17 21:[address]ation prepared [address] Joseph, acting as medical insurance clerk for Gamal Bose MD, /DO. <Ave Joseph - Last Filed: 12/06/17 21:52> <Gamal Bose - Last Filed: 12/07/17 01:11> Diagnosis at time of Disposition: Vaginal bleeding, abnormal Ovarian cyst Qualifiers: Laterality: bilateral Qualified Code(s): N83.201 - Unspecified ovarian cyst, right side; N83.202 - Unspecified ovarian cyst, left side; N83.202 - Unspecified ovarian cyst, left side - Discharge Dispostion Disposition: HOME Condition at time of disposition: Stable - Referrals Referrals: Rick Duran MD [Staff Physician] - - Patient Instructions Printed Discharge Instructions: DI for Vaginal Bleeding, DI for Ovarian Cyst Additional Instructions: Activity as tolerated. Stay hydrated. Blood tests and a urine test showed no acute abnormalities. There are cysts on both ovaries, 3 cm on the left and 1.7 cm on the right. This could be the cause of your pain, but the cause of the bleeding is unclear. Tylenol 1000 mg every 8 hours and/or ibuprofen 600 mg every 8 hours as needed for pain. Continue your medications as previously prescribed by your physician. You should follow up with Dr. Duran as soon as possible regarding today's emergency department visit. Return to the emergency department for any new or concerning symptoms, particularly persistent or worsening bleeding, severe pain, fevers or chills.
[2017-12-06] MEDS ORDERED: ONDANSETRON *ODT* 4 MG TABLET SL ONE (22:07)
[2017-12-06] MEDS ORDERED: ONDANSETRON *ODT* 4 MG TABLET ONE (22:14)
[2017-12-06 22:16] LABS: BASO % 1.4 % (0-2.0); HEMATOCRIT 37.3 % (32.4-45.2); HEMOGLOBIN 12.6 GM/dL (10.7-15.3); LYMPH % 23.8 % (8-40); MCH 29.6 pg (25.7-33.7); MCHC 33.7 g/dl (32.0-36.0); MEAN CELL VOLUME 87.7 fl (80-96); MEAN PLT VOLUME 8.4 fl (7.5-11.1); MONO % 5.6 % (3.8-10.2); NEUT % 68.2 % (42.8-82.8); PLATELET COUNT 251 K/MM3 (134-434); RBC 4.25 M/mm3 (3.60-5.2); RDW 14.2 % (11.6-15.6); WHITE BLOOD COUNT 7.8 K/mm3 (4.0-10.0)
[2017-12-06 22:19] LABS: HCG,QUALITATIVE URINE NEGATIVE
[2017-12-06 22:23] LABS: URINE APPEARANCE CLEAR; URINE BILIRUBIN NEGATIVE (NEGATIVE); URINE BLOOD 2+ (NEGATIVE); URINE COLOR LTYELLOW; URINE GLUCOSE (UA) NEGATIVE (NEGATIVE); URINE KETONE NEGATIVE (NEGATIVE); URINE LEUK ESTERASE NEGATIVE (NEGATIVE); URINE NITRITE NEGATIVE (NEGATIVE); URINE PROTEIN NEGATIVE (NEGATIVE)
[2017-12-06 22:41] LABS: EPI CELLS RARE /HPF (FEW); INR 1.06 (0.82-1.09); URINE MUCUS RARE
[2017-12-06 22:55] LABS: ALBUMIN 3.6 g/dl (3.4-5.0); ALK PHOS 87 U/L (45-117); ANION GAP 8 (8-16); BILIRUBIN,TOTAL 0.4 mg/dL (0.2-1.0); BLOOD UREA NITROGEN 16 mg/dL (7-18); CALCIUM 8.4 mg/dL (8.5-10.1); CHLORIDE 110 mmol/L (98-107); CO2 23 mmol/L (21-32); CREATININE 0.8 mg/dL (0.55-1.02); GLUCOSE,RANDOM 105 mg/dL (74-106); POTASSIUM 3.6 mmol/L (3.5-5.1); SGOT/AST 14 U/L (15-37); SGPT/ALT 19 U/L (12-78); SODIUM 141 mmol/L (136-145); TOT PROT 7.2 g/dl (6.4-8.2)
[2017-12-07] MEDS ORDERED: KETOROLAC TROMETHAMINE 60 MG/2 ML VIAL IM ONE (01:09)
[2017-12-07] MEDS ORDERED: KETOROLAC TROMETHAMINE 60 MG/2 ML VIAL ONE (02:07)
[2017-12-07 02:31] VITALS: BP 132/90; PULSE 78; TEMP 97
== END 2017-12-07 02:32 | disposition home or self-care (01) ==
LOC: JER 20:54
PROC: 3E0233Z Introduction of Anti-inflammatory into Muscle, Percutaneous Approach (ICD-10-PCS; principal; 2017-12-06)
DX: N93.8 Other specified abnormal uterine and vaginal bleeding (principal); N83.201 Unspecified ovarian cyst, right side; N83.202 Unspecified ovarian cyst, left side; Z90.710 Acquired absence of both cervix and uterus
CPT/HCPCS: 36415; 76830-TC; 80053; 81003; 81015; 84703; 85025; 85610; 99283-25

== ENCOUNTER 2018-02-17 19:39 | Emergency (ER) | payer OTHER ==
--- NOTE | 2018-02-17 20:22 | PDOC ---
Rapid Medical Evaluation Time Seen by Provider: 02/17/18 20:17 Medical Evaluation: Allergies Allergy/AdvReac Type Severity Reaction Status Date / Time No Known Drug Allergies Allergy Verified 01/24/18 16:32 02/17/18 20:17 I have performed a brief in-person evaluation of this patient. The patient presents with a chief complaint of: abdominal pain, vaginal cramping since today at work, denies bleeding/discharge, denies urinary symptoms , had partial hysterectomy 2015, "surgery planned for 02/26 for ovarian cyst removal", OBGYN MD Duran Pertinent physical exam findings: NA I have ordered the following: UA, Ucx The patient will proceed to the ED for further evaluation. Discharge Disposition - Diagnosis Vaginal pain - Referrals - Patient Instructions - Post Discharge Activity
[2018-02-17 20:24] VITALS: BP 140/81; PULSE 72; TEMP 98.3; BMI 26.5
[2018-02-17 22:53] LABS: URINE APPEARANCE CLEAR; URINE BILIRUBIN NEGATIVE (<2.0 mg/dL); URINE BLOOD 1+ (NEGATIVE); URINE COLOR LTYELLOW; URINE GLUCOSE (UA) NEGATIVE (NEGATIVE); URINE KETONE NEGATIVE (NEGATIVE); URINE LEUK ESTERASE TRACE (NEGATIVE); URINE NITRITE NEGATIVE (NEGATIVE); URINE PROTEIN NEGATIVE (NEGATIVE)
[2018-02-17 23:32] LABS: EPI CELLS RARE /HPF (FEW); URINE BACTERIA RARE /hpf (NONE SEEN); URINE MUCUS RARE
--- NOTE | 2018-02-18 01:24 | PDOC ---
History of Present Illness - General Chief Complaint: Pain Stated Complaint: PAIN Time Seen by Provider: 02/17/18 20:17 History Source: Patient Exam Limitations: No Limitations - History of Present Illness Initial Comments: CHIEF COMPLAINT: 52 y/o afebrile female with PMH partial hysterectomy, left sided ovarian cyst c/o vaginal pain for the past few weeks. HISTORY OF PRESENT ILLNESS: The patient states that intermittently for the past few weeks she's had vaginal pain that's worse with squatting and standing. She also states she feels something protruding down there as well. She denies f/c, vaginal bleeding. She has had 3 vaginal deliveries in the past and is having a left ovarian cyst removed next week by Dr. Duran. She has mentioned this problem to Dr. Duran in the past who believes she may have a cystocele. Vital signs on arrival are within normal limits. REVIEW OF SYSTEMS: GENERAL/CONSTITUTIONAL: No fever/chills. No weakness. No weight change. GASTROINTESTINAL: No abd pain, nausea, vomiting, diarrhea. GENITOURINARY: No dysuria, frequency, or change in urination. VAGINAL: +vaginal protrusion. No vaginal bleeding. MUSCULOSKELETAL: No joint or muscle swelling or pain. No neck or back pain. SKIN: No rash or easy bruising. NEUROLOGIC: No headache, vertigo, loss of consciousness, or loss of sensation. PHYSICAL EXAM: GENERAL: The patient is awake, alert, and fully oriented, in no acute distress. ABDOMEN: Soft, non-distended, non-tender even to deep palpation, no hepatomegaly or splenomegaly, no masses. VAGINAL: Small, midline cystocele that is TTP and can be reduced. No vaginal bleeding, lacerations or lesions. EXTREMITIES: Normal range of motion, no edema. NEUROLOGICAL: Normal speech, normal gait. CN II-XII grossly intact. SKIN: Warm, dry, normal turgor, no rashes or lesions noted. Past History - Past Medical History Allergies/Adverse Reactions: Allergies Allergy/AdvReac Type Severity Reaction Status Date / Time No Known Drug Allergies Allergy Verified 02/17/18 20:20 Home Medications: Ambulatory Orders NK [No Known Home Medication] 02/18/18 Anemia: Yes Asthma: No Cancer: No Cardiac Disorders: No CVA: No COPD: No CHF: No Dementia: No Diabetes: No GI Disorders: No Disorders: No HTN: No Hypercholesterolemia: No Liver Disease: No Seizures: No Thyroid Disease: No - Surgical History Abdominal Surgery: No Appendectomy: No Cardiac Surgery: No Cholecystectomy: Yes Lung Surgery: No Neurologic Surgery: No Orthopedic Surgery: No - Reproductive History (#): 4 Para: 5 Cervical CA: No Dysfunctional Uterine Bleeding: No Ectopic : No Endometrial CA: No Polycystic Ovaries: No Therapeutic (s) & number: No Tubal Ligation: No Spontaneous : 1 - Immunization History Immunization Up to Date: Yes - Suicide/Smoking/Psychosocial Hx Smoking History: Never smoked Have you smoked in the past 12 months: No Number of Cigarettes Smoked Daily: 0 Cigars Per Day: 0 Information on smoking cessation initiated: No Hx Alcohol Use: No Drug/Substance Use Hx: No Substance Use Type: None Hx Substance Use Treatment: No *Physical Exam - Vital Signs Last Vital Signs Temp Pulse Resp BP Pulse Ox 98.3 F 72 18 140/81 100 02/17/18 20:21 02/17/18 20:21 02/17/18 20:21 02/17/18 20:21 02/17/18 20:21 ED Treatment Course - ADDITIONAL ORDERS Additional order review: Laboratory Results 02/17/18 22:34 Urine Color Ltyellow Urine Appearance Clear Urine pH 5.0 Ur Specific [place] 1.019 Urine Protein Negative Urine Glucose (UA) Negative Urine Ketones Negative Urine Blood 1+ H Urine Nitrite Negative Urine Bilirubin Negative Urine Urobilinogen 2.0 H Ur Leukocyte Esterase Trace Urine WBC (Auto) 5 Urine RBC (Auto) 4 Ur Epithelial Cells Rare Urine Bacteria Rare Urine Mucus Rare Medical Decision Making - Medical Decision Making A/P: 52 y/o female with possible cystocele. Suggested kegel exercises to help with symptoms. Suggested she return to the ER with any worsening or concerning symptoms. The patient verbalizes understanding of all instructions, has no further questions and is awaiting discharge. *DC/Admit/Observation/Transfer Diagnosis at time of Disposition: Vaginal pain Cystocele Qualifiers: Cystocele location: midline Qualified Code(s): N81.11 - Cystocele, midline - Discharge Dispostion Disposition: HOME Condition at time of disposition: Good - Referrals Referrals: Rick Duran MD [Staff Physician] - - Patient Instructions Printed Discharge Instructions: DI for Cystocele/Rectocele Additional Instructions: Discharge Instructions: -Follow up with Dr. [place] within 1 week -Return to the ER with any worsening or concerning symptoms - Post Discharge Activity
== END 2018-02-18 01:30 | disposition home or self-care (01) ==
LOC: JERFT 19:39 → JER 19:39 → JERFT 02-18 01:30
DX: N81.11 Cystocele, midline (principal); N83.202 Unspecified ovarian cyst, left side
CPT/HCPCS: 81003; 81015; 87086; 99281-25

== ENCOUNTER 2018-02-25 05:00 | Day surgery (SDC) | payer OTHER ==
[2018-02-23 13:52] VITALS: BMI 26.5
[2018-02-26 10:46] VITALS: BP 116/73; PULSE 97; TEMP 97.8
== END 2018-02-26 14:41 | disposition home or self-care (01) ==
LOC: JASU-SURG 05:00 → J3W 20:20 → JASU-SURG 02-26 14:41
PROVIDERS: ATTEND Obstetrics & Gynecology
PROC: 0UT14ZZ Resection of Left Ovary, Percutaneous Endoscopic Approach (ICD-10-PCS; principal; 2018-02-25)
DX: D27.1 Benign neoplasm of left ovary (principal)
CPT/HCPCS: 94010; 94760

== ENCOUNTER 2018-02-28 00:33 | Emergency (ER) | payer OTHER ==
[2018-02-28 01:26] VITALS: BP 134/90; PULSE 78; TEMP 98; BMI 26.5
--- NOTE | 2018-02-28 01:29 | PDOC ---
History of Present Illness - General Chief Complaint: Pain, Acute Stated Complaint: NECK PAIN Time Seen by Provider: 02/28/18 01:07 - History of Present Illness Initial Comments: 02/28/18 01:21 52yo F with recent hospitalization due to adnexal cyst s/p laparoscopic resection along with fallopian tube resection? who presents today with 2 days of R-sided neck pain which has some radiation to her back. She reports two days ago she had laparoscopic abdominal surgery for an adenexal cyst removal and was kept in the hospital for a day due to nausea and vomiting post-operatively. She states her pain started then and when she was discharged she noticed her pain increased especially with certain movements. Pt reports receiving Percocet post- operatively and reports that this does not help her pain. Pt's last dose was around 4pm 02/27/18. Pt denies any fever/chills, headaches, blurry vision, n/v/d/ c, SOB, CP/discomfort, palpitations, changes in motor function of her arms or legs, changes in sensation. Past History - Past Medical History Allergies/Adverse Reactions: Allergies Allergy/AdvReac Type Severity Reaction Status Date / Time No Known Drug Allergies Allergy Verified 02/17/18 20:20 Home Medications: Ambulatory Orders Oxycodone HCl/Acetaminophen [Percocet 5-325 mg Tablet -] 1 - 2 tab PO Q6H #15 tab MDD 4 02/25/18 Cyclobenzaprine HCl [Flexeril -] 10 mg PO BID PRN #10 tablet 02/28/18 Anemia: Yes Asthma: No Cancer: No Cardiac Disorders: No CVA: No COPD: No CHF: No Dementia: No Diabetes: No GI Disorders: No Disorders: No HTN: No Hypercholesterolemia: No Liver Disease: No Seizures: No Thyroid Disease: No - Surgical History Abdominal Surgery: Yes (COLONOSCOPY) Appendectomy: No Cardiac Surgery: No Cholecystectomy: Yes Lung Surgery: No Neurologic Surgery: No Orthopedic Surgery: Yes (HAND SURGERY LEFT) - Reproductive History (#): 4 Para: 5 Cervical CA: No Dysfunctional Uterine Bleeding: No Ectopic : No Endometrial CA: No Polycystic Ovaries: No Therapeutic (s) & number: No Tubal Ligation: No Spontaneous : 1 - Immunization History Immunization Up to Date: Yes - Suicide/Smoking/Psychosocial Hx Smoking History: Never smoked Have you smoked in the past 12 months: No Number of Cigarettes Smoked Daily: 0 Cigars Per Day: 0 Hx Alcohol Use: No Drug/Substance Use Hx: No Substance Use Type: None Hx Substance Use Treatment: No Review of Systems - Review of Systems Constitutional: No: Chills, Fever, Night Sweats, Weakness HEENTM: No: Eye Pain, Blurred Vision, Ear Pain, Nose Congestion, Throat Pain Respiratory: No: Cough, Shortness of Breath, Wheezing Cardiac (ROS): No: Chest Pain, Lightheadedness, Palpitations, Chest Tightness ABD/GI: No: Constipated, Diarrhea, Nausea, Vomiting, Abdominal cramping : No: Dysuria, Frequency, Flank Pain Musculoskeletal: Yes: Muscle Pain, Neck Pain. No: Joint Pain, Joint Stiffness Neurological: No: Headache, Numbness, Tingling, Weakness, Dizziness *Physical Exam - Vital Signs Last Vital Signs Temp Pulse Resp BP Pulse Ox 98 F 78 19 134/90 99 02/28/18 00:35 02/28/18 00:35 02/28/18 00:35 02/28/18 00:35 02/28/18 00:35 - Physical Exam Comments: 02/28/18 01:54 GEN: NAD, awake, alert sitting in bed HEENT: EOMI, REYNALDO, facial symmetry, moist mucosa NECK: Firm musculature, ROM limited with R movement due to pain, flexion and extension normal LUNGS: CTA b/l CARDIAC: RRR no murmurs appreciated NEURO: Strength 5/5 in UE, no changes in sensation of upper extremities and face EXT: ROM intact, no edema, strong distal pulses Medical Decision Making - Medical Decision Making 02/28/18 01:55 Highly suspicious for neck musculature spasms due to positional effect from surgery --Will trial Flexeril -CXR to r/o PTX or other free air accumulation post surgery --CBC, CMP 02/28/18 02:55 On reassessment after Flexeril pt has residual neck pain, however improved --Still awaiting CXR 02/28/18 03:33 CXR without any PTX or free air. No infiltrates or other opacities. Normal CXR by me *DC/Admit/Observation/Transfer Diagnosis at time of Disposition: Muscle spasms of neck - Discharge Dispostion Disposition: HOME Condition at time of disposition: Stable Admit: No - Prescriptions Prescriptions: Cyclobenzaprine HCl [Flexeril -] 10 mg PO BID PRN #10 tablet PRN Reason: Muscle Spasms - Referrals - Patient Instructions Additional Instructions: You were seen in the ED for your neck pain. On XRay of your chest we saw no air in your neck or a dropped lungs Being that your neck got better with flexeril, the pain is most likely related to muscle spasms Please try to rest and don't strain your neck. We will send some Flexeril to your pharmacy for you to take every 12 hours as needed. --Do not take at the same time as Percocet if the timings overlap at the same time --Do NOT drive while taking Flexeril as this can be dangerous for yourself or others You can also take over the counter Motrin for your neck pain as well. Take frequent breaks from looking at your phone, computer, or down Please follow-up with your primary care provider if you continue to have similar muscle spasms. If you notice a loss of sensation, changes in strength with one arm compared to another, or visual changes please return to the ER. - Post Discharge Activity
[2018-02-28] MEDS ORDERED: CYCLOBENZAPRINE HCL 5 MG TABLET PO ONE (02:03)
[2018-02-28] MEDS ORDERED: CYCLOBENZAPRINE HCL 10 MG TABLET (FP) ONE (02:07)
--- NOTE | 2018-02-28 02:27 | PDOC ---
Attending Attestation - Resident Resident Name: Kobi Berger - ED Attending Attestation I have performed the following: I have examined & evaluated the patient, The case was reviewed & discussed with the resident, I agree w/resident's findings & plan, Exceptions are as noted - HPI HPI: 02/28/18 05:39 Ms Hein is a 52 yo F who presents to the ER due to right sided neck pain Pt is s/p lap adnexal cyst ?Fallopian tube resection She notes right sided trapezius pain Pain began when in the hospital but worsened upon discharge Pain is worse with neck movement No fever/chills, headaches, No visual changes No chest pain, shortness of breath 02/28/18 05:39 - Physicial Exam PE: 02/28/18 05:41 I have examined this patient after flexeril GEN: NAD, awake, alert sitting in bed HEENT: EOMI, REYNALDO, facial symmetry, moist mucosa NECK: Firm musculature, ROM nml, flexion and extension normal, muscular tenderness LUNGS: CTA b/l CARDIAC: RRR no murmurs appreciated NEURO: Strength 5/5 in UE EXT: ROM intact, no edema, strong distal pulses - Medical Decision Making 02/28/18 05:42 Pt was told on the floor that her symptoms could be the result of a pneumothroax This made her concerned CXR ordered Flexeril was given CXR does not demonstrate pneumothroax Will discharge to home Follow up with PMD Pain appears to be located in the musculature of the neck No arm or neck swelling/firmness to suggest DVT Return to the ER for any other concerns or complaints
== END 2018-02-28 03:49 | disposition home or self-care (01) ==
LOC: JER 00:33
DX: M62.838 Other muscle spasm (principal)
CPT/HCPCS: 71046-TC-FY; 99281-25

== ENCOUNTER 2019-12-10 20:13 | Emergency (ER) | payer OTHER ==
[2019-12-10 20:24] VITALS: BP 143/94; PULSE 94; TEMP 97.9; BMI 28.1
[2019-12-10] MEDS ORDERED: ONDANSETRON *ODT* 4 MG TABLET SL ONE (20:34)
--- NOTE | 2019-12-10 20:39 | PDOC ---
History of Present Illness - General Chief Complaint: Headache Stated Complaint: HEADECHE Time Seen by Provider: 12/10/19 20:31 - History of Present Illness Initial Comments: 12/10/19 20:37 53-year-old female presents for evaluation of slow onset headache which started today about noontime precipitated by an anxiety attack. Not typical of her prior headaches she denies comorbidities Past History - Past Medical History Allergies/Adverse Reactions: Allergies Allergy/AdvReac Type Severity Reaction Status Date / Time No Known Drug Allergies Allergy Verified 12/10/19 20:24 Home Medications: Ambulatory Orders Oxycodone HCl/Acetaminophen [Percocet 5-325 mg Tablet -] 1 - 2 tab PO Q6H #15 tab MDD 4 02/25/18 Cyclobenzaprine HCl [Flexeril -] 10 mg PO BID PRN #10 tablet 02/28/18 Anemia: Yes Asthma: No Cancer: No Cardiac Disorders: No CVA: No COPD: No CHF: No Dementia: No Diabetes: No GI Disorders: No Disorders: No HTN: No Hypercholesterolemia: No Liver Disease: No Seizures: No Thyroid Disease: No Other medical history: headache - Surgical History Abdominal Surgery: Yes (COLONOSCOPY) Appendectomy: No Cardiac Surgery: No Cholecystectomy: Yes Lung Surgery: No Neurologic Surgery: No Orthopedic Surgery: Yes (HAND SURGERY LEFT) - Reproductive History (#): 4 Para: 5 Cervical CA: No Dysfunctional Uterine Bleeding: No Ectopic : No Endometrial CA: No Polycystic Ovaries: No Therapeutic (s) & number: No Tubal Ligation: No Spontaneous : 1 - Immunization History Immunization Up to Date: Yes - Psycho Social/Smoking Cessation Hx Smoking History: Never smoked Have you smoked in the past 12 months: No Number of Cigarettes Smoked Daily: 0 Cigars Per Day: 0 Hx Alcohol Use: No Drug/Substance Use Hx: No Substance Use Type: None Hx Substance Use Treatment: No Review of Systems - Review of Systems ABD/GI: Yes: Vomiting Neurological: Yes: Headache *Physical Exam - Vital Signs Last Vital Signs Temp Pulse Resp BP Pulse Ox 97.9 F 94 H 18 143/94 99 12/10/19 20:22 12/10/19 20:22 12/10/19 20:22 12/10/19 20:22 12/10/19 20:22 - Physical Exam 12/10/19 20:38 GENERAL: The patient is awake, alert, and fully oriented, in no acute distress. HEAD: Normal with no signs of trauma. EYES: sclera anicteric, conjunctiva clear. ENT: Ears normal tympanic membranes normal oropharynx clear uvula midline NECK: Normal range of motion LUNGS: Breath sounds equal, clear to auscultation bilaterally. No wheezes, and no crackles. HEART: S1 and S2 without murmur, rub or gallop. ABDOMEN: Soft, nontender, normoactive bowel sounds. No guarding, no rebound. No masses. EXTREMITIES: Normal range of motion, no edema. No clubbing or cyanosis. No cords, erythema, or tenderness. NEUROLOGICAL: Cranial nerves II through XII grossly intact. PSYCH: Normal mood, normal affect. SKIN: Warm, Dry, normal turgor, no rashes or lesions noted. ED Treatment Course - RADIOLOGY Radiology Studies Ordered: Category Date Time Status HEAD CT WITHOUT CONTRAST [CT] Stat CT Scan 12/10/19 20:34 Ordered Medical Decision Making - Medical Decision Making 12/10/19 22:23 Headache and anxiety relieved after IV medications. CAT scan negative for intracranial process follow-up with primary care provider Discharge - Discharge Information Problems reviewed: Yes Clinical Impression/Diagnosis: Anxiety, Headache Condition: Improved Disposition: HOME - Admission No - Follow up/Referral Referrals: Irlanda Herrera MD [Staff Physician] - Clarence Bates MD [Staff Physician] - - Patient Discharge Instructions Additional Instructions: Tylenol and Motrin for headache at home. Return to the emergency room should you require further care and without fail follow-up with neurology as well as your internal medicine doctor in 1 to 2 days for further evaluation and treatment options. - Post Discharge Activity
[2019-12-10] MEDS ORDERED: ONDANSETRON *ODT* 4 MG TABLET ONE (21:21)
[2019-12-10] MEDS ORDERED: METOCLOPRAMIDE HCL INJECTION 10 MG/2 ML VIAL IVPUSH ONE (21:45)
[2019-12-10] MEDS ORDERED: ACETAMINOPHEN 1000 MG/100 ML VIAL (NON FORMULARY) IVPB ONE (21:46)
[2019-12-10] MEDS ORDERED: SODIUM CHLORIDE 0.9% 500 ML INFUS.BAG IV ONE (21:46)
[2019-12-10] MEDS ORDERED: diazePAM 5 MG TABLET PO ONE (21:47)
[2019-12-10] MEDS ORDERED: METOCLOPRAMIDE HCL INJECTION 10 MG/2 ML VIAL ONE (21:49)
[2019-12-10] MEDS ORDERED: ACETAMINOPHEN INJECTION 100 ML IVPB ONE (21:51)
[2019-12-10] MEDS ORDERED: diazePAM 5 MG TABLET ONE (22:12)
== END 2019-12-10 22:52 | disposition home or self-care (01) ==
LOC: JERFT 20:13
PROC: 3E033NZ Introduction of Analgesics, Hypnotics, Sedatives into Peripheral Vein, Percutaneous Approach (ICD-10-PCS; principal; 2019-12-10)
PROC: 3E033GC Introduction of Other Therapeutic Substance into Peripheral Vein, Percutaneous Approach (ICD-10-PCS; 2019-12-10)
PROC: 3E033GC Introduction of Other Therapeutic Substance into Peripheral Vein, Percutaneous Approach (ICD-10-PCS; 2019-12-10)
DX: R51 Headache (principal); F41.9 Anxiety disorder, unspecified
CPT/HCPCS: 70450-TC; 99281-25; J0131; Q0162

== ENCOUNTER 2019-12-22 11:47 | Emergency (ER) | payer OTHER ==
[2019-12-22 11:56] VITALS: BMI 28.3
[2019-12-22] MEDS ORDERED: SODIUM CHLORIDE 0.9% 1000 ML INFUS.BAG IV ONE (13:35)
[2019-12-22] MEDS ORDERED: ACETAMINOPHEN 1000 MG/100 ML VIAL (NON FORMULARY) IVPB ONE (13:35)
[2019-12-22] MEDS ORDERED: METOCLOPRAMIDE HCL INJECTION 10 MG/2 ML VIAL IVPB ONE (13:36)
[2019-12-22] MEDS ORDERED: METOCLOPRAMIDE HCL INJECTION 10 MG/2 ML VIAL ONE (13:51)
[2019-12-22] MEDS ORDERED: ACETAMINOPHEN INJECTION 100 ML IVPB ONE (13:51)
[2019-12-22 14:35] LABS: BASO % 0.5 % (0-2.0); EOS % 0.4 % (0-4.5); HEMATOCRIT 35.9 % (32.4-45.2); HEMOGLOBIN 12.1 GM/dL (10.7-15.3); LYMPH % 3.2 % (8-40); MCH 30.2 pg (25.7-33.7); MCHC 33.6 g/dl (32.0-36.0); MEAN PLT VOLUME 7.9 fl (7.5-11.1); MONO % 5.7 % (3.8-10.2); NEUT % 90.2 % (42.8-82.8); PLATELET COUNT 290 K/MM3 (134-434); RBC 3.99 M/mm3 (3.60-5.2); WHITE BLOOD COUNT 8.6 K/mm3 (4.0-10.0)
--- NOTE | 2019-12-22 14:42 | PDOC ---
History of Present Illness - General Chief Complaint: Headache Stated Complaint: HEADACHE/ CHEST PAIN Time Seen by Provider: 12/22/19 13:25 History Source: Patient Exam Limitations: No Limitations - History of Present Illness Initial Comments: 12/22/19 14:37 54F with no PMH who presents to the ER with sudden onset fever, chills, headache , cough, and chest tightness. The patient states that she felt her normal state of health yesterday and does not have sick contacts. She also denies recent travel. She states that her headache is pressure-like, diffuse but mostly frontal, without exacerbating or alleviating factors. She describes her chest tightness as retrosternal, worsened by coughing and deep breaths, and worsened when she pushes on her chest. Past History - Past Medical History Allergies/Adverse Reactions: Allergies Allergy/AdvReac Type Severity Reaction Status Date / Time No Known Drug Allergies Allergy Verified 12/22/19 11:56 Home Medications: Ambulatory Orders Oxycodone HCl/Acetaminophen [Percocet 5-325 mg Tablet -] 1 - 2 tab PO Q6H #15 tab MDD 4 02/25/18 Cyclobenzaprine HCl [Flexeril -] 10 mg PO BID PRN #10 tablet 02/28/18 Anemia: Yes Asthma: No Cancer: No Cardiac Disorders: No CVA: No COPD: No CHF: No Dementia: No Diabetes: No GI Disorders: No Disorders: No HTN: No Hypercholesterolemia: No Liver Disease: No Seizures: No Thyroid Disease: No - Surgical History Abdominal Surgery: Yes (COLONOSCOPY) Appendectomy: No Cardiac Surgery: No Cholecystectomy: Yes Lung Surgery: No Neurologic Surgery: No Orthopedic Surgery: Yes (HAND SURGERY LEFT) - Reproductive History (#): 4 Para: 5 Cervical CA: No Dysfunctional Uterine Bleeding: No Ectopic : No Endometrial CA: No Polycystic Ovaries: No Therapeutic (s) & number: No Tubal Ligation: No Spontaneous : 1 - Immunization History Immunization Up to Date: Yes - Psycho Social/Smoking Cessation Hx Smoking History: Never smoked Have you smoked in the past 12 months: No Number of Cigarettes Smoked Daily: 0 Cigars Per Day: 0 Hx Alcohol Use: No Drug/Substance Use Hx: No Substance Use Type: None Hx Substance Use Treatment: No Review of Systems - Review of Systems Able to Perform ROS?: Yes Comments:: 12/22/19 14:42 GENERAL/CONSTITUTIONAL: + for fever and chills. No weakness. HEAD, EYES, EARS, NOSE AND THROAT: No change in vision. No ear pain or discharge. No sore throat. CARDIOVASCULAR: + for chest tightness. No chest pain, palpitations, or lightheadedness. RESPIRATORY: No cough, wheezing, shortness of breath, or hemoptysis. GASTROINTESTINAL: No abdominal pain, nausea, vomiting, diarrhea, or constipation. GENITOURINARY: No dysuria, frequency, hematuria, or change in urination. MUSCULOSKELETAL: + for myalgias. No joint or muscle swelling or pain. No neck or back pain. SKIN: No rash or lesions. NEUROLOGIC: + for headache. No numbness, tingling, focal weakness, loss of consciousness, or change in strength/sensation. Is the patient limited Maldivian proficient: No *Physical Exam - Vital Signs Last Vital Signs Temp Pulse Resp BP Pulse Ox 100.5 F H 114 H 20 146/89 100 12/22/19 11:50 12/22/19 11:50 12/22/19 11:50 12/22/19 11:50 12/22/19 11:50 - Physical Exam 12/22/19 14:43 GENERAL: Well developed, well nourished. Awake and alert. Slightly uncomfortable appearing. HEENT: Normocephalic, atraumatic. Hearing grossly normal. Moist mucous membranes. PERRLA, EOMI. No conjunctival pallor. Sclera are non-icteric. NECK: Supple. Full ROM. No JVD. CARDIOVASCULAR: Regular rate and rhythm. No murmurs, rubs, or gallops. PULMONARY: No evidence of respiratory distress. Lungs clear to auscultation bilaterally. No wheezing, rales, or rhonchi. ABDOMINAL: Soft. Non-tender. Non-distended. No rebound or guarding. GENITOURINARY: No CVA tenderness bilaterally. MUSCULOSKELETAL: TTP over rib cage. Normal range of motion at all joints. No bony deformities or tenderness. EXTREMITIES: No cyanosis. No clubbing. No edema. No calf tenderness or swelling. SKIN: Warm and dry. Normal capillary refill. No rashes. No jaundice. NEUROLOGICAL: Alert, awake, appropriate. Cranial nerves 2-12 grossly intact. Normal speech. Gait is normal without ataxia. PSYCHIATRIC: Cooperative. Good eye contact. Appropriate mood and affect. ED Treatment Course - LABORATORY CBC & Chemistry Diagram: 12/22/19 14:00 12/22/19 14:00 - RADIOLOGY Radiology Studies Ordered: Category Date Time Status CHEST PA & LAT [RAD] Stat Radiology 12/22/19 13:35 Ordered - Medications Given in the ED: ED Medications Discontinued Medications Generic Name Dose Route Start Last Admin Trade Name Khalif PRN Reason Stop Dose Admin Metoclopramide HCl 10 mg 12/22/19 13:36 12/22/19 14:17 Reglan Injection - IVPB 12/22/19 13:37 10 mg ONCE ONE Administration Medical Decision Making - Medical Decision Making 12/22/19 14:45 54F with no PMH who presents with flu-like symptoms and normal PE. No neck stiffness, rash, Kernig, and Brudzinski's signs. Very high suspicion for flu. Low suspicion for meningitis. Will treat symptomatically and reassess. 12/22/19 15:31 CBC, CMP WNL. Flu pending. Pt states her symptoms are improving. Pending CXR. 12/22/19 16:18 Flu negative. CXR negative on my preliminary read. On reassessment, pt states that her symptoms are improving. Will add toradol and continue fluids. 12/22/19 18:21 Pt states she feels much better on reassessment. Denies numbness, tingling, weakness. Moving all 4 extremities without any gross CN deficits. Tolerated PO. Ambulating. Will d/c with PCP f/u. Discharge - Discharge Information Problems reviewed: Yes Clinical Impression/Diagnosis: Viral illness Headache Qualifiers: Headache type: unspecified Headache chronicity pattern: unspecified pattern Intractability: not intractable Qualified Code(s): R51 - Headache Condition: Good Disposition: HOME - Admission No - Follow up/Referral - Patient Discharge Instructions Patient Printed Discharge Instructions: DI for Headache, DI for Viral Syndrome Additional Instructions: Your ER visit is not complete until your follow up with your primary care physician. Please follow up with your primary care physician in 1-2 days. Please return to the ER if you have any signs or symptoms of chest pain, shortness of breath, uncontrollable fever, chills, nausea, vomiting, numbness, tingling, or weakness in any part of your body, changes in vision, or slurred speech. Please return to the ER if symptoms persist, worsen, or new symptoms arise. - Post Discharge Activity
[2019-12-22 14:47] LABS: INR 1.03 (0.83-1.09); PROTHROMBIN TIME (PATIENT) 12.1 SEC (9.7-13.0)
[2019-12-22 15:03] LABS: ALBUMIN 3.9 g/dl (3.4-5.0); ALK PHOS 91 U/L (45-117); ANION GAP 9 MMOL/L (8-16); BILIRUBIN,TOTAL 0.5 mg/dL (0.2-1); BLOOD UREA NITROGEN 9.6 mg/dL (7-18); CALCIUM 9.2 mg/dL (8.5-10.1); CHLORIDE 108 mmol/L (98-107); CO2 22 mmol/L (21-32); CREATININE 0.8 mg/dL (0.55-1.3); GLUCOSE,RANDOM 92 mg/dL (74-106); POTASSIUM 3.7 mmol/L (3.5-5.1); SGOT/AST 21 U/L (15-37); SGPT/ALT 24 U/L (13-61); SODIUM 140 mmol/L (136-145); TOT PROT 7.6 g/dl (6.4-8.2)
--- NOTE | 2019-12-22 15:20 | PDOC ---
Documentation entered by Rangel Tesfaye SCRIBE, acting as scribe for Rudolph Ellis MD. Rudolph Ellis MD: This documentation has been prepared by the Mera argueta Nirvannie, SCRIBE, under my direction and personally reviewed by me in its entirety. I confirm that the documentation accurately reflects all work, treatment, procedures, and medical decision making performed by me. Attending Attestation - Resident Resident Name: RachelHarsh - ED Attending Attestation I have performed the following: I have examined & evaluated the patient, The case was reviewed & discussed with the resident, I agree w/resident's findings & plan, Exceptions are as noted - HPI HPI: 12/22/19 15:25 The patient is a 54 year old female, with no significant past medical history, who presents to the emergency department with sudden onset fever, chills, pressure-like headache, cough, and chest tightness. She denies recent nausea, vomit, diarrhea or constipation. She denies recent dysuria, frequency, urgency or hematuria. \ Allergies: NKDA - Physicial Exam PE: 12/22/19 15:18 Patient is awake and alert, well-nourished, in no distress, febrile, vital signs noted. Normocephalic and atraumatic PERRLA, EOMI, no photophobia Oropharynx is clear Neck is supple, no meningismus, no significant enlarged cervical lymphadenopathy CTA RRR Abdomen soft, nontender, nondistended No lower extremity edema No petechial rash No focal neurological deficits - Medical Decision Making 12/22/19 15:19 54-year-old female presents with flulike symptoms. Will obtain CBC/CMP/chest x- ray/influenza a/B swab. Will hydrate, will administer Reglan for headache. Will reassess. 12/22/19 16:26 Patient reassessed. Patient reports improvement in the level of her symptoms. Patient tolerates p.o. Repeat evaluation reveals no evidence of meningismus. I do not suspect meningitis or subarachnoid hemorrhage at this time. Will administer Toradol. Likely discharge.
[2019-12-22] MEDS ORDERED: KETOROLAC TROMETHAMINE 30 MG/1 ML VIAL IVPUSH ONE (16:19)
[2019-12-22] MEDS ORDERED: KETOROLAC TROMETHAMINE 15 MG/ML VIAL ONE (16:27)
[2019-12-22 18:52] VITALS: BP 134/81; PULSE 80; TEMP 98.7
--- NOTE | 2019-12-27 10:26 | EKG ---
Test Reason : Blood Pressure : / mmHG Vent. Rate : 105 BPM Atrial Rate : 105 BPM P-R Int : 158 ms QRS Dur : 084 ms QT Int : 348 ms P-R-T Axes : 056 034 043 degrees QTc Int : 459 ms POOR DATA QUALITY, INTERPRETATION MAY BE ADVERSELY AFFECTED SINUS TACHYCARDIA NONSPECIFIC ST ABNORMALITY ABNORMAL ECG WHEN COMPARED WITH ECG OF 22-AUG-2016 16:20, VENT. RATE HAS INCREASED BY 44 BPM Confirmed by Raman Bonilla ([id number]) on 12/27/2019 10:26:11 AM Referred By: Confirmed By:Raman Bonilla
== END 2019-12-22 18:52 | disposition home or self-care (01) ==
LOC: JER 11:47
PROC: 3E033NZ Introduction of Analgesics, Hypnotics, Sedatives into Peripheral Vein, Percutaneous Approach (ICD-10-PCS; principal; 2019-12-22)
PROC: 3E0333Z Introduction of Anti-inflammatory into Peripheral Vein, Percutaneous Approach (ICD-10-PCS; 2019-12-22)
PROC: 3E033GC Introduction of Other Therapeutic Substance into Peripheral Vein, Percutaneous Approach (ICD-10-PCS; 2019-12-22)
DX: B34.9 Viral infection, unspecified (principal); R51 Headache; D64.9 Anemia, unspecified
CPT/HCPCS: 36415; 71045-TC-FY; 80053; 82550; 82553; 84484; 85025; 85610; 87804; 93005; 93010; 99284-25; J0131; J7030

== ENCOUNTER 2020-06-11 21:44 | Emergency (ER) | payer OTHER ==
[2020-06-11 21:52] VITALS: TEMP 98.5; BMI 28.1
[2020-06-11] MEDS ORDERED: KETOROLAC TROMETHAMINE 30 MG/1 ML VIAL IM ONE (21:52)
--- NOTE | 2020-06-11 21:52 | PDOC ---
Rapid Medical Evaluation Time Seen by Provider: 06/11/20 21:49 Medical Evaluation: Allergies Allergy/AdvReac Type Severity Reaction Status Date / Time No Known Drug Allergies Allergy Verified 12/22/19 11:56 06/11/20 21:50 I have performed a brief in-person evaluation of this patient. CC: frontal headache and lower back pain. Denies f/c, asddle anesthesia, incontinence. PE: Neuro grossly normal. No CVAT. No palpable muscle spasms to lumbar region. Orders: toradol Patient will proceed to ED for further evaluation. Discharge Disposition - Diagnosis Headache - Referrals - Patient Instructions - Post Discharge Activity
[2020-06-11] MEDS ORDERED: LIDOCAINE PATCH REMOVAL MC SCH (22:00)
[2020-06-11] MEDS ORDERED: KETOROLAC TROMETHAMINE 30 MG/1 ML VIAL ONE (22:08)
[2020-06-11 22:42] LABS: EPI CELLS 27 /uL (0-25.1); HYALINE CASTS 1 /uL (0-3.1); PH,URINE 5.5 (5.0-8.0); URINE APPEARANCE CLEAR; URINE BACTERIA 190 /uL (0-1359); URINE BILIRUBIN NEGATIVE (NEGATIVE); URINE COLOR YELLOW; URINE GLUCOSE (UA) NEGATIVE (NEGATIVE); URINE KETONE NEGATIVE (NEGATIVE); URINE LEUK ESTERASE NEGATIVE (NEGATIVE); URINE NITRITE NEGATIVE (NEGATIVE); URINE PROTEIN NEGATIVE (NEGATIVE); URINE RBC 12 /uL (0-23.9); URINE UROBILINOGEN 0.2 mg/dL (0.2-1.0); URINE WBC 5 /uL (0-25.8)
[2020-06-11] MEDS ORDERED: LIDOCAINE 5% TOPICAL PATCH TP ONE (23:03)
[2020-06-11] MEDS ORDERED: ACETAMINOPHEN 325 MG TABLET (FP) PO ONE (23:03)
[2020-06-11] MEDS ORDERED: ACETAMINOPHEN 325 MG TABLET (FP) ONE (23:05)
[2020-06-11] MEDS ORDERED: LIDOCAINE 5% TOPICAL PATCH ONE (23:05)
--- NOTE | 2020-06-11 23:56 | PDOC ---
Attending Attestation - Resident Resident Name: Josemanuel Munoz - ED Attending Attestation I have performed the following: I have examined & evaluated the patient, The case was reviewed & discussed with the resident, I agree w/resident's findings & plan - HPI HPI: 06/12/20 06:54 Pt works at a hospital cleaning stretchers etc. Now with left low back pain. Py has pain with palpation; not with percussion. Pain is at the left hip area. She has taken nothing for pain. Pt has no fever and no dysuria and she recalls no trauma - Physicial Exam PE: 06/12/20 06:55 Normal exam pt has musculoskeletal pain of the left hip/back - Medical Decision Making 06/12/20 01:01 Pt is feeling better and she is ready to go home with analgesics. 06/12/20 06:56 Pt will be given a couple days off 06/12/20 06:56 lidoderm patch; muscle relaxant; percocet for pain prescribed Discharge - Discharge Information Problems reviewed: Yes Clinical Impression/Diagnosis: Headache Qualifiers: Headache type: unspecified Back pain Qualifiers: Back pain location: low back pain Condition: Improved Disposition: HOME - Additional Discharge Information Prescriptions: Diclofenac Sodium [Diclofono] 2.5 gm TP BID PRN #1 gel.packet PRN Reason: Back Pain Lidocaine 5% Patch [Lidoderm Patch -] 1 patch TP DAILY #30 patch Oxycodone HCl/Acetaminophen [Percocet 5/325 -] 1 tab PO Q6H #14 tablet MDD 4 Methocarbamol [Robaxin -] 500 mg PO TID #21 tablet - Follow up/Referral Referrals: William Garces MD [Primary Care Provider] - - Patient Discharge Instructions Patient Printed Discharge Instructions: DI for Musculoskeletal Pain, DI for Lumbar Radiculopathy Additional Instructions: You came to the ED because of back pain. While here we treated you with pain medicine, which helped resolved the symptoms. We suspect that you are experiencing radiculopathy or musculoskeletal pain. It is very common. Good ways to treat musculoskeletal pain are: 1. Sitz baths (Epsom salts) 2. warm compresses 3. stretching, including yoga. For radiculopathy, you may follow up with a neurologist or spine doctor. Come back to the ED if you have any numbness or severe pain in your legs or back, or if you lose any control of your bowel or bladder, or if you develop a feverl. - Post Discharge Activity Work/Back to School Note: Back to Work
--- NOTE | 2020-06-12 01:07 | PDOC ---
History of Present Illness - General Chief Complaint: Headache Stated Complaint: HEADACHES/BACK PAIN Time Seen by Provider: 06/11/20 21:49 - History of Present Illness Initial Comments: 06/12/20 01:12 54 yo F w/ history of discectomy and partial hysterectomy p/w low left back pain. This started unprovoked when she got out of bed in the morning. The pain is sharp and focal to just above the PSIS. It does not radiate down the leg or around the flank. It is positional and is worse when she walks vigorously and when she lies on her left side. No h/o kidney stones and no hematuria, dysuria. No vaginal bleeding. no dyspareunia. no menstrual period No painful defecation, no hematochezia ROS CONSTITUTIONAL: Absent: fever, chills, diaphoresis, generalized weakness, malaise, loss of appetite HEENT: Absent: rhinorrhea, nasal congestion CARDIOVASCULAR: Absent: chest pain, syncope, palpitations RESPIRATORY: Absent: cough, shortness of breath, dyspnea with exertion GASTROINTESTINAL: Absent: abdominal pain, abdominal distension, nausea, vomiting, diarrhea, constipation, melena, hematochezia GENITOURINARY: Absent: dysuria, frequency, urgency, hesitancy, hematuria, flank pain, genital pain MUSCULOSKELETAL: Absent: myalgia, arthralgia, joint swelling SKIN: Absent: rash, itching, pallor HEMATOLOGIC/IMMUNOLOGIC: Absent: easy bleeding, easy bruising, lymphadenopathy, frequent infections ENDOCRINE: Absent: unexplained weight gain, unexplained weight loss, heat intolerance, cold intolerance NEUROLOGIC: Absent: headache, focal weakness or paresthesias, dizziness, unsteady gait, seizure, mental status changes, bladder or bowel incontinence PSYCHIATRIC: Absent: anxiety, depression, suicidal or homicidal ideation, hallucinations. PE GENERAL: Well developed, well nourished. Awake and alert. No acute distress. HEENT: Normocephalic, atraumatic. PERRLA, EOMI. No conjunctival pallor. Sclera are non- icteric. Moist mucous membranes. Oropharynx is clear. NECK: Supple. Full ROM. No JVD. No thyromegaly. No lymphadenopathy. CARDIOVASCULAR: Regular rate and rhythm. No murmurs, rubs, or gallops. Distal pulses are 2+ and symmetric. PULMONARY: No evidence of respiratory distress. Lungs clear to auscultation bilaterally. No wheezing, rales or rhonchi. ABDOMINAL: Soft. Non-tender. Non-distended. No rebound or guarding. No organomegaly. Normoactive bowel sounds. MUSCULOSKELETAL Normal range of motion at all joints. No bony deformities or tenderness. No CVA tenderness. EXTREMITIES: No cyanosis. No clubbing. No edema. No calf tenderness. SKIN: Warm and dry. Normal capillary refill. No rashes. No jaundice. NEUROLOGICAL: Alert, awake, appropriate. Cranial nerves 2-12 intact. No deficits to light touch in face, upper extremities and lower extremities. No motor deficits in the in face, upper extremities and lower extremities. Normoreflexic in the upper and lower extremities. Normal speech. Toes are down-going bilaterally. Gait is normal without ataxia. PSYCHIATRIC: Cooperative. Good eye contact. Appropriate mood and affect. 06/13/20 04:43 06/13/20 05:09 06/15/20 21:09 plan: UA, lido patch and d/c home Past History - Medical History Allergies/Adverse Reactions: Allergies Allergy/AdvReac Type Severity Reaction Status Date / Time No Known Drug Allergies Allergy Verified 12/22/19 11:56 Home Medications: Ambulatory Orders Diclofenac Sodium [Diclofono] 2.5 gm TP BID PRN #1 gel.packet 06/12/20 Lidocaine 5% Patch [Lidoderm Patch -] 1 patch TP DAILY #30 patch 06/12/20 Methocarbamol [Robaxin -] 500 mg PO TID #21 tablet 06/12/20 Oxycodone HCl/Acetaminophen [Percocet 5/325 -] 1 tab PO Q6H #14 tablet MDD 4 06/12/20 Anemia: Yes Asthma: No Cancer: No Cardiac Disorders: No CVA: No COPD: No CHF: No Dementia: No Diabetes: No GI Disorders: No Disorders: No HTN: No Hypercholesterolemia: No Liver Disease: No Seizures: No Thyroid Disease: No - Surgical History Abdominal Surgery: Yes (COLONOSCOPY) Appendectomy: No Cardiac Surgery: No Cholecystectomy: Yes Lung Surgery: No Neurologic Surgery: No Orthopedic Surgery: Yes (HAND SURGERY LEFT) - Reproductive History (#): 4 Para: 5 Cervical CA: No Dysfunctional Uterine Bleeding: No Ectopic : No Endometrial CA: No Polycystic Ovaries: No Therapeutic (s) & number: No Tubal Ligation: No Spontaneous : 1 - Immunization History Immunization Up to Date: Yes - Psycho-Social/Smoking History Smoking History: Never smoked Have you smoked in the past 12 months: No Number of Cigarettes Smoked Daily: 0 Cigars Per Day: 0 - Substance Abuse Hx (Audit-C & DAST Scrn) How often the patient has a drink containing alcohol: Never Score: In Men: 4 or > Positive; In Women: 3 or > Positive: 0 Screen Result (Pos requires Nsg. Audit-10AR): Negative In the last yr the pt used illegal drug/Rx for NonMed reason: No Score: Yes response is considered Positive: 0 Screen Result (Positive result requires Nsg. DAST-10): Negative *Physical Exam - Vital Signs Last Vital Signs Temp Pulse Resp BP Pulse Ox 98.5 F 99 H 19 142/85 99 06/11/20 21:48 06/11/20 21:48 06/11/20 21:48 06/11/20 21:48 06/11/20 21:48 ED Treatment Course - ADDITIONAL ORDERS Additional order review: Laboratory Results 06/11/20 22:00 Urine Color Yellow Urine Appearance Clear Urine pH 5.5 Ur Specific [place] 1.029 Urine Protein Negative Urine Glucose (UA) Negative Urine Ketones Negative Urine Blood Trace Urine Nitrite Negative Urine Bilirubin Negative Urine Urobilinogen 0.2 Ur Leukocyte Esterase Negative Urine WBC (Auto) 5 Urine RBC (Auto) 12 Urine Casts (Auto) 1 U Epithel Cells (Auto) 27 Urine Bacteria (Auto) 190 - Medications Given in the ED: ED Medications Discontinued Medications Generic Name Dose Route Start Last Admin Trade Name Cbq PRN Reason Stop Dose Admin Acetaminophen 650 mg 06/11/20 23:03 06/11/20 23:09 Tylenol - PO 06/11/20 23:04 Not Given ONCE ONE Ketorolac Tromethamine 30 mg 06/11/20 21:52 06/11/20 22:30 Toradol Injection - IM 06/11/20 21:53 30 mg ONCE ONE Administration Lidocaine 1 patch 06/11/20 23:03 06/11/20 23:09 Lidoderm Patch - TP 06/11/20 23:04 1 patch ONCE ONE Administration Discharge - Discharge Information Problems reviewed: Yes Clinical Impression/Diagnosis: Headache Qualifiers: Headache type: unspecified Back pain Qualifiers: Back pain location: low back pain Condition: Improved Disposition: HOME - Admission No - Additional Discharge Information Prescriptions: Diclofenac Sodium [Diclofono] 2.5 gm TP BID PRN #1 gel.packet PRN Reason: Back Pain Lidocaine 5% Patch [Lidoderm Patch -] 1 patch TP DAILY #30 patch Oxycodone HCl/Acetaminophen [Percocet 5/325 -] 1 tab PO Q6H #14 tablet MDD 4 Methocarbamol [Robaxin -] 500 mg PO TID #21 tablet - Follow up/Referral Referrals: William Garces MD [Primary Care Provider] - - Patient Discharge Instructions Patient Printed Discharge Instructions: DI for Musculoskeletal Pain, DI for Lumbar Radiculopathy Additional Instructions: You came to the ED because of back pain. While here we treated you with pain medicine, which helped resolved the symptoms. We suspect that you are experiencing radiculopathy or musculoskeletal pain. It is very common. Good ways to treat musculoskeletal pain are: 1. Sitz baths (Epsom salts) 2. warm compresses 3. stretching, including yoga. For radiculopathy, you may follow up with a neurologist or spine doctor. Come back to the ED if you have any numbness or severe pain in your legs or back, or if you lose any control of your bowel or bladder, or if you develop a feverl. - Post Discharge Activity Work/Back to School Note: Back to Work
[2020-06-12 01:21] VITALS: BP 132/79; PULSE 63
== END 2020-06-12 01:21 | disposition home or self-care (01) ==
LOC: JER 21:44
PROC: 3E0233Z Introduction of Anti-inflammatory into Muscle, Percutaneous Approach (ICD-10-PCS; principal; 2020-06-11)
DX: R51 Headache (principal); M54.5 Low back pain
CPT/HCPCS: 81003; 87086; 99284-25

== ENCOUNTER 2020-08-02 18:34 | Emergency (ER) | payer OTHER ==
[2020-08-02 18:48] VITALS: TEMP 98.1; BMI 28.0
[2020-08-02] MEDS ORDERED: METOCLOPRAMIDE HCL INJECTION 10 MG/2 ML VIAL IVPUSH ONE (20:30)
[2020-08-02] MEDS ORDERED: SODIUM CHLORIDE 1,000 ML IV STA (20:30)
[2020-08-02] MEDS ORDERED: KETOROLAC TROMETHAMINE 30 MG/1 ML VIAL IVPUSH ONE (20:30)
[2020-08-02] MEDS ORDERED: METOCLOPRAMIDE HCL INJECTION 10 MG/2 ML VIAL ONE (20:44)
[2020-08-02] MEDS ORDERED: KETOROLAC TROMETHAMINE 60 MG/2 ML VIAL ONE (20:44)
--- OUTSIDE RECORDS SUMMARY | 2020-08-02 20:45 | XMS ---
:1965 Author Organization [facility] Support Name Relationship Address Phone [facility] Unavailable [address] [place] [address] [facility] Unavailable [address] [place] [address] TAMIA HORNE MOTHER [address] [place] [id number] TAMIA HORNE Mother [address] [place] [address] Re-disclosure Warning The records that you are about to access may contain information from federally- assisted alcohol or drug abuse programs. If such information is present, then the following federally mandated warning applies: This information has been disclosed to you from records protected by federal confidentiality rules (42 CFR part 2). The federal rules prohibit you from making any further disclosure of this information unless further disclosure is expressly permitted by the written consent of the person to whom it pertains or as otherwise permitted by 42 CFR part 2. A general authorization for the release of medical or other information is NOT sufficient for this purpose. The Federal rules restrict any use of the information to criminally investigate or prosecute any alcohol or drug abuse patient.The records that you are about to access may contain highly sensitive health information, the redisclosure of which is protected by Article 27-F of the [facility] Public Health law. If you continue you may haveaccess to information: Regarding HIV / AIDS; Provided by facilities licensed or operated by the [facility] Office of Mental Health; or Provided by the [facility] Office for People With Developmental Disabilities. If such information is present, then the following [facility] mandated warning applies: This information has been disclosed to you from confidential records which are protected by state law. State law prohibits you from making any further disclosure of this information without the specific written consent of the person to whom it pertains, or as otherwise permitted by law. Any unauthorized further disclosure in violation of state law may result in a fine or alf sentence or both. A general authorization for the release of medical or other information is NOT sufficient authorization for further disclosure. Insurance Providers Payer name Policy type Policy ID Covered Covered democrat's Policy P marlene / Coverage democrat ID relationship to Barr Inf ormation type barr [facility] [id number] - [id number] SP [id number] [facility] [id number] [email or web address] [facility]
--- NOTE | 2020-08-02 21:06 | PDOC ---
History of Present Illness - General Chief Complaint: Headache Stated Complaint: MIGRAINS HEADACHES Time Seen by Provider: 08/02/20 19:40 History Source: Patient, Old Records Exam Limitations: No Limitations - History of Present Illness Initial Comments: 08/02/20 21:03 HISTORY OF PRESENT ILLNESS: 84-year-old woman denies medical history presents emergency department for evaluation of frontal headache for the past 7 days. Patient reports the pain is medially between her eyes which she rates as an 8/10. Describes the pain as a pressure-like sensation. Patient reports she is seen by her primary doctor for this complaint and was told to take NSAIDs and Tylenol. Patient is following this direction but is not had any improvement in her symptoms. She denies any fevers, chills, nasal drainage, difficulty breathing, loss of smell, blurry vision, dizziness, nausea or vomiting. No recent travel or sick contacts. PAST MEDICAL HISTORY: Denies past medical history SURGICAL HISTORY: Denies ALLERGIES: No known drug allergies REVIEW OF SYSTEMS General/Constitutional: Denies fever or chills. Denies weakness, weight change. HEENT: Denies change in vision. Denies ear pain or discharge. Denies sore throat. Cardiovascular: Denies chest pain or shortness of breath. Respiratory: Denies cough, wheezing, or hemoptysis. Gastrointestinal: Denies nausea, vomiting, diarrhea or constipation. Denies rectal bleeding. Genitourinary: Denies dysuria, frequency, or change in urination. Musculoskeletal: Denies joint or muscle swelling or pain. Denies neck or back pain. Skin and breasts: Denies rash or easy bruising. Neurologic: See HPI Psychiatric: Denies depression or anxiety. Endocrine: Denies increased thirst. Denies abnormal weight change. Hematologic/Lymphatic: Denies anemia, easy bleeding, or history of blood clots. Allergic/Immunologic: Denies hives or skin allergy. Denies latex allergy. PHYSICAL EXAM General Appearance: Well-appearing, appropriately dressed. No apparent distress, no intoxication. HEENT: EOMI, PERRLA, normal ENT inspection, normal voice, TMs normal, pharynx normal. No conjunctival pallor. No photophobia, scleral icterus. Neck: Supple. Trachea midline. No tenderness, rigidity, carotid bruit, stridor, lymphadenopathy, or thyromegaly. Respiratory/Chest: Lungs CTAB. No shortness of breath, chest tenderness, respiratory distress, accessory muscle use. No crackles, rales, rhonchi, stridor, wheezing, dullness Cardiovascular: RRR. S1, S2. No JVD, murmur, bradycardia, tachycardia. Neurologic: sieve maker II-XII intact. Fully oriented, alert. Appropriate mood/affect. Motor strength 5/5. No appreciable EOM palsy, facial droop or sensory deficit. Negative Kernig sign. Past History - Medical History Allergies/Adverse Reactions: Allergies Allergy/AdvReac Type Severity Reaction Status Date / Time No Known Drug Allergies Allergy Verified 12/22/19 11:56 Home Medications: Ambulatory Orders Diclofenac Sodium [Diclofono] 2.5 gm TP BID PRN #1 gel.packet 06/12/20 Lidocaine 5% Patch [Lidoderm Patch -] 1 patch TP DAILY #30 patch 06/12/20 Methocarbamol [Robaxin -] 500 mg PO TID #21 tablet 06/12/20 Oxycodone HCl/Acetaminophen [Percocet 5/325 -] 1 tab PO Q6H #14 tablet MDD 4 06/12/20 Anemia: Yes Asthma: No Cancer: No Cardiac Disorders: No CVA: No COPD: No CHF: No Dementia: No Diabetes: No GI Disorders: No Disorders: No HTN: No Hypercholesterolemia: No Liver Disease: No Seizures: No Thyroid Disease: No - Surgical History Abdominal Surgery: Yes (COLONOSCOPY) Appendectomy: No Cardiac Surgery: No Cholecystectomy: Yes Lung Surgery: No Neurologic Surgery: No Orthopedic Surgery: Yes (HAND SURGERY LEFT) - Reproductive History Is Patient Now?: No (#): 4 Para: 5 Cervical CA: No Dysfunctional Uterine Bleeding: No Ectopic : No Endometrial CA: No Polycystic Ovaries: No Therapeutic (s) & number: No Tubal Ligation: No Spontaneous : 1 - Immunization History Immunization Up to Date: Yes - Psycho-Social/Smoking History Smoking History: Never smoked Have you smoked in the past 12 months: No Number of Cigarettes Smoked Daily: 0 Cigars Per Day: 0 Information on smoking cessation initiated: No - Substance Abuse Hx (Audit-C & DAST Scrn) How often the patient has a drink containing alcohol: Never Score: In Men: 4 or > Positive; In Women: 3 or > Positive: 0 Screen Result (Pos requires Nsg. Audit-10AR): Negative In the last yr the pt used illegal drug/Rx for NonMed reason: No Score: Yes response is considered Positive: 0 Screen Result (Positive result requires Nsg. DAST-10): Negative Neuro Specific PMHX - Complaint Specific PMHX Glaucoma: No Herniated Disk: No Laminectomy: No Migraine: No Multiple Sclerosis: No TIA: No *Physical Exam - Vital Signs Last Vital Signs Temp Pulse Resp BP Pulse Ox 98.1 F 74 16 131/83 98 08/02/20 18:45 08/02/20 18:45 08/02/20 18:45 08/02/20 18:45 08/02/20 18:45 ED Treatment Course - Medications Given in the ED: ED Medications Discontinued Medications Generic Name Dose Route Start Last Admin Trade Name Khalif PRN Reason Stop Dose Admin Ketorolac Tromethamine 30 mg 08/02/20 20:30 08/02/20 21:01 Toradol Injection - IVPUSH 08/02/20 20:31 30 mg ONCE ONE Administration Metoclopramide HCl 10 mg 08/02/20 20:30 08/02/20 21:01 Reglan Injection - IVPUSH 08/02/20 20:31 10 mg ONCE ONE Administration Medical Decision Making - Medical Decision Making 08/02/20 21:05 A/P: 54-year-old woman with frontal headache for 1 week Neurologic exam Normal head CT performed in November 2019 Normal saline 1 L IV bolus Toradol 30 mg IV push Reglan 10 mg IV Benadryl 12.5 mg IV push Reassess 08/02/20 22:01 Reevaluation of the patient's pain reveals a headache of 0/10 after receiving medication. Patient is currently with normal neurologic exam and pain-free I feel is safe to discharge home. I will give patient a neurologist to follow-up for continue evaluation of her headaches. I discussed the physical exam findings, ancillary test results and final diagnoses with the patient. I answered all of the patient's questions. The patient was satisfied with the care received and felt comfortable with the discharge plan and treatment plan. The patient will call their primary care physician within 24 hours to arrange follow-up and will return to the Emergency Department with any new, persistent or worsening symptoms. Portions of this note have been documented using voice recognition software. As a result, errors may occur in the math and science instructor process. Effort has been made to correct all grammatical and math and science instructor error, but some may have been missed which may produce sporadic inaccurate math and science instructor or nonsensical phrases. Discharge - Discharge Information Problems reviewed: Yes Clinical Impression/Diagnosis: Headache above the eye region Condition: Stable Disposition: HOME - Admission No - Follow up/Referral Referrals: Clif Garces MD [Primary Care Provider] - Steven Matos MD [Staff Physician] - - Patient Discharge Instructions Additional Instructions: Take Tylenol or Motrin as needed for headaches. Keep a diary of all food to eat and activities performed prior to headaches starting. Make an appointment with her primary doctor for reevaluation within the next week. Return to emergency department for worsening headache, blurry vision, dizziness, nausea, vomiting or any other concerns. Thank you very much for for choosing us to provide emergent health care needs. - Post Discharge Activity Work/Back to School Note: Back to Work
[2020-08-02 22:29] VITALS: BP 130/80; PULSE 70
== END 2020-08-02 22:29 | disposition home or self-care (01) ==
LOC: JER 18:34
PROC: 3E033NZ Introduction of Analgesics, Hypnotics, Sedatives into Peripheral Vein, Percutaneous Approach (ICD-10-PCS; principal; 2020-08-02)
PROC: 3E0333Z Introduction of Anti-inflammatory into Peripheral Vein, Percutaneous Approach (ICD-10-PCS; 2020-08-02)
PROC: 3E0337Z Introduction of Electrolytic and Water Balance Substance into Peripheral Vein, Percutaneous Approach (ICD-10-PCS; 2020-08-02)
DX: R51 Headache (principal)
CPT/HCPCS: 99285-25

== ENCOUNTER 2021-07-25 04:39 | Day surgery (SDC) | payer OTHER ==
[2021-07-23 14:23] VITALS: BMI 28.5
[2021-07-25] MEDS ORDERED: ROPIVACAINE HCL 0.5% 30ML VIAL ONE (10:21)
[2021-07-25] MEDS ORDERED: DEXAMETHASONE SOD PHOSPHATE 10 MG/1 ML VIAL ONE (10:21)
[2021-07-25] MEDS ORDERED: MIDAZOLAM HCL 2 MG/2 ML SINGLE DOSE VIAL ONE ×2 (10:22)
[2021-07-25] MEDS ORDERED: PROPOFOL 20 ML ONE ×2 (10:35→12:02)
[2021-07-25] MEDS ORDERED: oxyCODONE HCL 5 MG TABLET PO PRN (11:52)
[2021-07-25] MEDS ORDERED: ONDANSETRON 4 MG/2 ML VIAL IVPUSH PRN (11:52)
[2021-07-25] MEDS ORDERED: LACTATED RINGERS SOLUTION 1,000 ML IV SCH (12:00)
[2021-07-25 16:18] VITALS: BP 140/80; PULSE 80; TEMP 97.4
== END 2021-07-25 15:20 | disposition home or self-care (01) ==
LOC: JASU-SURG 04:39
PROVIDERS: ATTEND Orthopaedic Surgery
PROC: 0LQ40ZZ Repair Left Upper Arm Tendon, Open Approach (ICD-10-PCS; 2021-07-25)
PROC: 0PBG0ZZ Excision of Left Humeral Shaft, Open Approach (ICD-10-PCS; 2021-07-25)
PROC: 0PBG0ZZ Excision of Left Humeral Shaft, Open Approach (ICD-10-PCS; principal; 2021-07-25 10:00)
DX: M77.02 Medial epicondylitis, left elbow (principal)
CPT/HCPCS: 88304-TC; 94760; J1100

== ENCOUNTER 2021-08-11 18:10 | Emergency (ER) | payer OTHER ==
[2021-08-11 18:20] VITALS: BP 141/87; PULSE 96; TEMP 98.9; BMI 27.8
== END 2021-08-11 19:33 | disposition home or self-care (01) ==
LOC: JER 18:10 → JERFT 18:10
DX: N81.10 Cystocele, unspecified (principal)
CPT/HCPCS: 99281-25

== ENCOUNTER 2021-09-17 04:34 | Day surgery (SDC) | payer OTHER ==
[2021-09-13 14:12] VITALS: BMI 28.0
[2021-09-17] MEDS ORDERED: BUPIVACAINE HCL/PF 0.5% (5MG/ML) 10 ML VIAL ONE (10:17)
[2021-09-17] MEDS ORDERED: MIDAZOLAM HCL 2 MG/2 ML SINGLE DOSE VIAL ONE (11:20)
[2021-09-17] MEDS ORDERED: PROPOFOL 20 ML ONE ×3 (11:23)
[2021-09-17] MEDS ORDERED: LIDOCAINE HCL/PF 2% SDV 5ML VIAL ONE (11:24)
[2021-09-17] MEDS ORDERED: ceFAZolin SODIUM 1 GM VIAL ONE (11:24)
[2021-09-17] MEDS ORDERED: SUCCINYLCHOLINE CHLORIDE 200 MG/10 ML SYRINGE ONE (11:25)
[2021-09-17] MEDS ORDERED: ceFAZolin SODIUM 1 GM VIAL IVPB ONE (11:42)
[2021-09-17] MEDS ORDERED: BUPIVACAINE HCL/PF 0.5% (5MG/ML) 10 ML VIAL IJ ONE (11:54)
[2021-09-17] MEDS ORDERED: ACETAMINOPHEN 325 MG TABLET (FP) PO PRN (12:25)
[2021-09-17] MEDS ORDERED: oxyCODONE HCL 5 MG TABLET PO PRN (12:25)
[2021-09-17] MEDS ORDERED: ONDANSETRON 4 MG/2 ML VIAL IVPUSH PRN (12:25)
[2021-09-17] MEDS ORDERED: LACTATED RINGERS SOLUTION 1,000 ML IV SCH (12:30)
[2021-09-17] MEDS ORDERED: ONDANSETRON 4 MG/2 ML VIAL ONE (14:25)
[2021-09-17 15:40] VITALS: PULSE 66
[2021-09-17 17:15] VITALS: BP 148/78; TEMP 98.1
== END 2021-09-17 16:45 | disposition home or self-care (01) ==
LOC: JASU-SURG 04:34
PROVIDERS: ATTEND Orthopaedic Surgery
PROC: 0SBC4ZZ Excision of Right Knee Joint, Percutaneous Endoscopic Approach (ICD-10-PCS; principal; 2021-09-17 10:00)
DX: S83.241A Other tear of medial meniscus, current injury, right knee, initial encounter (principal); X58.XXXA Exposure to other specified factors, initial encounter; Y93.9 Activity, unspecified; Y92.89 Other specified places as the place of occurrence of the external cause; Y99.9 Unspecified external cause status
CPT/HCPCS: 94760; 97116-GP

== ENCOUNTER 2021-12-27 06:11 | Day surgery (SDC) | payer OTHER ==
[2021-12-25 12:16] VITALS: BMI 28.7
[2021-12-27] MEDS ORDERED: BUPIVACAINE HCL 100 ML ONE (07:22)
[2021-12-27] MEDS ORDERED: PROPOFOL 20 ML ONE (08:25)
[2021-12-27] MEDS ORDERED: fentaNYL CITRATE 250 MCG/5 ML VIAL ONE (08:25)
[2021-12-27] MEDS ORDERED: MIDAZOLAM HCL 2 MG/2 ML SINGLE DOSE VIAL ONE ×2 (08:26)
[2021-12-27] MEDS ORDERED: ONDANSETRON 4 MG/2 ML VIAL IVPUSH PRN (08:54)
[2021-12-27] MEDS ORDERED: oxyCODONE HCL 5 MG TABLET PO PRN (08:54)
[2021-12-27] MEDS ORDERED: LACTATED RINGERS SOLUTION 1,000 ML IV SCH (09:00)
[2021-12-27 10:21] VITALS: TEMP 97.8
[2021-12-27 11:58] VITALS: BP 131/74; PULSE 76
[2021-12-27] MEDS ORDERED: PROMETHAZINE HCL 25 MG/1 ML VIAL IVPUSH ONE (12:45)
== END 2021-12-27 12:00 | disposition home or self-care (01) ==
LOC: FASU 06:11
PROVIDERS: ATTEND Orthopaedic Surgery
PROC: 0SBC4ZZ Excision of Right Knee Joint, Percutaneous Endoscopic Approach (ICD-10-PCS; principal; 2021-12-27 08:20)
DX: S83.241A Other tear of medial meniscus, current injury, right knee, initial encounter (principal); M25.561 Pain in right knee; M17.11 Unilateral primary osteoarthritis, right knee; M77.8 Other enthesopathies, not elsewhere classified; X58.XXXA Exposure to other specified factors, initial encounter; Y93.9 Activity, unspecified; Y92.9 Unspecified place or not applicable
CPT/HCPCS: 94760

== ENCOUNTER 2022-02-06 13:18 | Emergency (ER) | payer OTHER ==
[2022-02-06 13:28] VITALS: BP 123/93; PULSE 108; TEMP 98.2; BMI 28.9
[2022-02-06] MEDS ORDERED: IBUPROFEN 400 MG TABLET (FP) PO ONE ×2 (14:18)
== END 2022-02-06 16:00 | disposition home or self-care (01) ==
LOC: JERFT 13:18
PROC: 0RSXXZZ Reposition Left Finger Phalangeal Joint, External Approach (ICD-10-PCS; principal; 2022-02-06)
DX: S63.257A Unspecified dislocation of left little finger, initial encounter (principal); W20.8XXA Other cause of strike by thrown, projected or falling object, initial encounter
CPT/HCPCS: 73140-TC-LT-FY; 99283-25

== ENCOUNTER 2023-05-15 05:21 | Day surgery (SDC) | payer OTHER ==
[2023-05-12 09:07] VITALS: BMI 29.2
[~2023-05-15 05:21] MED LIST: BUPIVACAINE HCL/PF 0.5% (5 MG/ML) 30 ML VIAL IJ ONE
[2023-05-15] MEDS ORDERED: BUPIVACAINE HCL/PF 0.5% (5MG/ML) 10 ML VIAL ONE (07:22)
[2023-05-15] MEDS ORDERED: oxyCODONE HCL 5 MG TABLET PO PRN (07:24)
[2023-05-15] MEDS ORDERED: PROMETHAZINE HCL 25 MG/1 ML VIAL IVPB PRN (07:24)
[2023-05-15] MEDS ORDERED: ONDANSETRON 4 MG/2 ML VIAL IVPUSH PRN (07:24)
[2023-05-15] MEDS ORDERED: LACTATED RINGERS SOLUTION 1,000 ML IV SCH (07:30)
[2023-05-15] MEDS ORDERED: MIDAZOLAM HCL 2 MG/2 ML SINGLE DOSE VIAL ONE (07:57)
[2023-05-15] MEDS ORDERED: ceFAZolin SODIUM 1 GM VIAL ONE (07:57)
[2023-05-15] MEDS ORDERED: SODIUM CHLORIDE 0.9% P/F 10 ML VIAL IJ ONE (07:57)
[2023-05-15] MEDS ORDERED: PROPOFOL 20 ML ONE (07:57)
[2023-05-15] MEDS ORDERED: LIDOCAINE HCL/PF 2% SDV 5ML VIAL ONE (07:57)
[2023-05-15] MEDS ORDERED: ceFAZolin SODIUM 1 GM VIAL IVPB ONE (08:17)
[2023-05-15] MEDS ORDERED: DEXAMETHASONE SOD PHOSPHATE 4 MG/1 ML VIAL ONE (08:21)
[2023-05-15] MEDS ORDERED: KETOROLAC TROMETHAMINE 30 MG/1 ML VIAL ONE (08:21)
[2023-05-15] MEDS ORDERED: ONDANSETRON 4 MG/2 ML VIAL ONE ×2 (08:21→10:44)
[2023-05-15] MEDS ORDERED: BUPIVACAINE HCL/PF 0.5% (5 MG/ML) 30 ML VIAL IJ ONE (08:48)
[2023-05-15 11:31] VITALS: RESP 20
[2023-05-15] MEDS ORDERED: PROMETHAZINE HCL 25 MG/1 ML VIAL ONE (12:39)
[2023-05-15 14:34] VITALS: BP 131/80; PULSE 74; TEMP 97.2
== END 2023-05-15 14:05 | disposition home or self-care (01) ==
LOC: JASU-SURG 05:21
PROVIDERS: ATTEND Orthopaedic Surgery
PROC: 0SBC4ZZ Excision of Right Knee Joint, Percutaneous Endoscopic Approach (ICD-10-PCS; principal; 2023-05-15 08:00)
DX: S83.241A Other tear of medial meniscus, current injury, right knee, initial encounter (principal); M94.261 Chondromalacia, right knee; M17.11 Unilateral primary osteoarthritis, right knee; X58.XXXA Exposure to other specified factors, initial encounter; Y93.9 Activity, unspecified; Y92.9 Unspecified place or not applicable
CPT/HCPCS: 94760